=== PATIENT | female | born 1965 ===

== ENCOUNTER 2018-08-19 14:20 | Inpatient (IN) | payer MEDICAID ==
[2018-08-19] MEDS ORDERED: Piperacillin/Tazobact 3.375 GM in Sodium Chloride 0.9% 100 ML IV STA (15:30)
--- NOTE | 2018-08-19 15:52 | ED PDOC ---
Upper Extremity Pain/Injury Time Seen by Provider: 08/19/18 15:24 Chief Complaint (Nursing): Finger,Hand,&Wrist Chief Complaint (Provider): finger injury History Per: Patient History/Exam Limitations: no limitations Onset/Duration Of Symptoms: Days (x3) Current Symptoms Are (Timing): Still Present Additional Complaint(s): Bertha Wade, a 52 year old female with past medical history of Sclerderma and Reynauds disease, presents to the emergency department with finger pain onset 3 days s/p injuring her fingertip on a cabinet. Patient states she had a cut under her nail from the injury and now has worsening swelling, pain and redness to the right second digit. At baseline she has slightly contracted fingers and movement is worse in the right second digit. Redness and swelling is also worse in the right second digit.Patient has other lesions on fingers not causing the severe redness, swelling and pain. She denies fever or chills. Patient takes prilosec to prevent inflammation from Sclerderma. No further medical complaints PMD: None Past Medical History Reviewed: Historical Data, Nursing Documentation, Vital Signs Vital Signs: Last Vital Signs Temp 98.7 F 08/19/18 14:35 Pulse 68 08/19/18 14:35 Resp 18 08/19/18 14:35 BP 139/84 08/19/18 14:35 Pulse Ox 98 08/19/18 14:35 - Medical History Other PMH: Sclerderma and Reynauds disease - Surgical History Other surgeries: vascuar surgery to left wrist and hand, resectin of calcification to left thumb - Family History Family History: States: Unknown Family Hx - Social History Current smoker - smoking cessation education provided: Yes - Home Medications Home Medications: Ambulatory Orders Medication Instructions Recorded Omeprazole Magnesium [Prilosec Otc] 20 mg PO DAILY 08/19/18 - Allergies Allergies/Adverse Reactions: Allergies Allergy/AdvReac Type Severity Reaction Status Date / Time No Known Allergies Allergy Verified 08/19/18 14:35 Review of Systems ROS Statement: Except As Marked, All Systems Reviewed And Found Negative Constitutional: Negative for: Fever, Chills Musculoskeletal: Positive for: Other (swelling pain and redness to right second digit, at baseline has slightly contraced fingers, movement worse in right second digit, lesions on fingers not causing severe redness swelling or pain) Physical Exam - Reviewed Nursing Documentation Reviewed: Yes Vital Signs Reviewed: Yes - Physical Exam Appears: Positive for: Well, Non-toxic, In Acute Distress (mild painful distress) Head Exam: Positive for: ATRAUMATIC, NORMAL INSPECTION, NORMOCEPHALIC Skin: Positive for: Warm, Dry Eye Exam: Positive for: EOMI, PERRL ENT: Negative for: Pharyngeal Erythema, Tonsillar Exudate Neck: Positive for: Painless ROM, Supple Cardiovascular/Chest: Positive for: Regular Rate, Rhythm. Negative for: Murmur Respiratory: Positive for: Normal Breath Sounds. Negative for: Wheezing Gastrointestinal/Abdominal: Positive for: Soft. Negative for: Tenderness Back: Positive for: Normal Inspection. Negative for: Decreased ROM Extremity: Positive for: Capillary Refill (less than 2), Other (bilateral hands- mild contraction of all digits, skin is tight with areas of peeling at fingertips, right 2nd digit sausage like edema and erythema, held inflection, tenderness long flexor sheath and extension elicits severe pain, erythema more localized to fingertip just distal to nail no fluctuance, light touch intact,, 3 digit mil phalanx volar raised firm calcification, L hand 5 digit distal fingertip yellow healed abrasion ) Lymphatic: Negative for: Adenopathy Neurologic/Psych: Positive for: Alert. Negative for: Motor/Sensory Deficits - Laboratory Results Result Diagrams: 08/19/18 15:30 08/19/18 15:30 - ECG O2 Sat by Pulse Oximetry: 98 (RA) Pulse Ox Interpretation: Normal Medical Decision Making Medical Decision Making: Time: 15:24 Initial Impression: second right finger infection with possible flexor tenosynovitis Initial Plan: --EKG --CMP --CRP --Lactic acid --Urine dipstick --CBC w/ differential --Erythrocyte sedimentation rate --Partial thromboplastin time --Prothrombin time Time: 15:39 -discussed with Dr. Lopez hand consult, patient to be admitted for IV antibiotics and close observation of progressive infection with possible surgical intervention -consulted with Dr. Bruno surgical services coordinator who evaluated patient in ED Time: 15:42 -discussed with hospitalist - Scribe Attestation: Documented by Nicole Brown, acting as a scribe for Ameena Willard MD. Provider Scribe Attestation: All medical record entries made by the Scribe were at my direction and perso jason dictated by me. I have reviewed the chart and agree that the record accurately reflects my personal performance of the history, physical exam, medical decision making, and the department course for this patient. I have also personally directed, reviewed, and agree with the discharge instructions and disposition. Disposition - Clinical Impression Clinical Impression: Flexor tenosynovitis of finger - Disposition Disposition Time: 15:40 Condition: GUARDED Forms: HSystem (Samoan) - Pt Status Changed To: Hospital Disposition Of: Observation - POA Present On Arrival: None
[2018-08-19] MEDS ORDERED: Vancomycin 1 g Inj ONE (15:58)
[2018-08-19] MEDS ORDERED: Piperacillin/Tazobact 3.375 gm Inj IVPB ONE (15:58)
--- NOTE | 2018-08-19 16:03 | CP.PCM.CON ---
History of Present Illness - History of Present Illness History of Present Illness: Surgery: Dr. Lopez CC: Infected R index finger HPI: 52F w. pmh of scleroderma and reynauds presents with worsening pain / swelling to R index finger. Symptoms began 3 days ago, she attributes it to a small cut on the finger. Pt has been soaking finger in salt water, however there has been no improvement in symptoms. She states that she has numbness/parathesias in the finger. The pain is constant, worse with motion. She states that here has been no drainage of pus. She denies F/C. PMH: See above PSH: Hysterectomy, L hand surgery x 2 Meds: MAR reviewed NKDA Social: + tobacco, no ETOH/drugs Fhx: non-contributory Review of Systems - Review of Systems All systems: reviewed and no additional remarkable complaints except (HPI) Past Patient History - Past Social History Smoking Status: Never Smoked - INTEGUMENTARY Hx Dermatological Problems: Yes Other/Comment: Sclerderma. Reynauds. - PSYCHIATRIC Hx Substance Use: No Meds Allergies/Adverse Reactions: Allergies Allergy/AdvReac Type Severity Reaction Status Date / Time No Known Allergies Allergy Verified 08/19/18 14:35 - Medications Medications: Current Medications Vancomycin HCl 1 gm/ Sodium (Chloride) 250 mls @ 166.667 mls/hr IV STAT STA; Protocol Stop: 08/19/18 16:59 Piperacillin Sod/Tazobactam (Sod 3.375 gm/ Sodium Chloride) 100 mls @ 100 mls/hr IV STAT STA; Protocol Stop: 08/19/18 16:29 Physical Exam - Constitutional Appears: Non-toxic, No Acute Distress - Head Exam Head Exam: ATRAUMATIC, NORMOCEPHALIC - Eye Exam Eye Exam: EOMI - ENT Exam ENT Exam: Mucous Membranes Moist - Neck Exam Neck exam: Positive for: Full Rom - Respiratory Exam Respiratory Exam: NORMAL BREATHING PATTERN. absent: Accessory Muscle Use, Respiratory Distress - Cardiovascular Exam Cardiovascular Exam: RRR - GI/Abdominal Exam GI & Abdominal Exam: Soft. absent: Tenderness - Extremities Exam Additional comments: R index finger, swollen with fusiform shape, and overlying erythema, warm to touch, Flexion limited 2/2 swelling, able to extend passively with pain localized to DIPJ distally. Distal pulses palpable, sensation intact Results - Vital Signs Recent Vital Signs: Last Vital Signs Temp 98.7 F 08/19/18 14:35 Pulse 68 08/19/18 14:35 Resp 18 08/19/18 14:35 BP 139/84 08/19/18 14:35 Pulse Ox 98 08/19/18 15:57 Assessment & Plan - Assessment and Plan (Free Text) Assessment: 52F w. flexor tenosynovitis R index finger -Xray reviewed -zosyn/vanco -Tylenol/advil for pain -will follow closely, if no improvement, pt will need OR -NPO -d/w attending Zemaitis PGY4
[2018-08-19] MEDS ORDERED: Piperacillin/Tazobact 3.375 GM in Sodium Chloride 0.9% 100 ML IVPB STA (16:15)
[2018-08-19 16:19] LABS: BASO # 0.1 K/uL (0.0-0.2); BASO % 0.8 % (0.0-2.0); EOS # 0.1 K/uL (0.0-0.7); EOS % 0.9 % (0.0-4.0); HEMOGLOBIN 13.4 g/dL (12.0-16.0); LYMPH # 2.2 K/uL (1.0-4.3); LYMPH % 25.8 % (20.0-40.0); MEAN CELL VOLUME 88.1 fl (81.0-99.0); MEAN CORPUSCULAR HEMOGLOBIN 29.6 pg (27.0-31.0); MEAN CORPUSCULAR HGB CONC 33.5 g/dL (33.0-37.0); MEAN PLATELET VOLUME 9.2 fl (7.2-11.7); MONO # 0.6 K/uL (0.0-0.8); MONO % 6.6 % (0.0-10.0); NEUT # 5.7 K/uL (1.8-7.0); NEUT % 65.9 % (50.0-75.0); RBC 4.52 Mil/uL (3.80-5.20); RED CELL DISTRIBUTION WIDTH 14.9 % (11.5-14.5); WHITE BLOOD COUNT 8.7 K/uL (4.8-10.8)
[2018-08-19 16:28] LABS: ALB/GLOB RATIO 1.1 (1.0-2.1); ALBUMIN 4.1 g/dL (3.5-5.0); ALT/SGPT 28 U/L (9-52); AST/SGOT 24 U/L (14-36); BLOOD UREA NITROGEN 14 mg/dl (7-17); CALCIUM 9.5 mg/dL (8.4-10.2); GFR NON-AFRICAN AMERICAN > 60
--- NOTE | 2018-08-19 16:48 | RAD ---
Date of service: 08/19/2018 HISTORY: preop COMPARISON: No prior. TECHNIQUE: Chest PA and lateral FINDINGS: LUNGS: No active pulmonary disease. PLEURA: No significant pleural effusion identified. No pneumothorax apparent. CARDIOVASCULAR: Mild atherosclerotic calcification present Normal. OSSEOUS STRUCTURES: The mild multilevel degenerative spondylosis of the thoracic spine VISUALIZED UPPER ABDOMEN: Normal. OTHER FINDINGS: None. IMPRESSION: No active disease.
--- NOTE | 2018-08-19 16:49 | CP.PCM.HP ---
<AshleymunaArlene - Last Filed: 08/19/18 17:53> History of Present Illness - History of Present Illness History of Present Illness: Pt is a 52 yo F with a pmhx of scleroderma and raynauds here due to right index finger and left pinky finger pain. Pt states that 2 weeks ago she suffered a cut underneath her R nailbed due to persistant dry skin from her chronic condition, she tried to soak the R index finger in salt water for 30 mins at a time, however it started to get warm, swollen and tender, she has trouble bending the finger today. Pt didnt take any pain medication at home, states she used to take Nifedipine for her condition no longer does. Pt had an appt with [facility] on 09/05 for evaluation of the Left pinky pain. PMH: Scleroderma dx 18yrs ago, Raynauds Meds: Prilosec NKDA FH: Father- 6 NE's (1st at age 40)-no hx of heart dz, Aunt-DM, Mom-Asthma Social Hx: Smokes 2-3 cig/day for the last 2-3 months, Social drinker, Denies drug use Surg Hx: Hysterectomy 2002, 2 L hand surgeries Present on Admission - Present on Admission Any Indicators Present on Admission: No History of DVT/PE: No History of Uncontrolled Diabetes: No Urinary Catheter: No Decubitus Ulcer Present: No Review of Systems - EENT Eyes: Requires Corrective Lenses - Musculoskeletal Musculoskeletal: Joint Swelling, Limited Range of Motion, Other Past Patient History - Past Medical History & Family History Past Medical History?: Yes - Past Social History Smoking Status: Smokes 2-3 cig/day for last 2-3 months Alcohol: Social Drugs: Denies - INTEGUMENTARY Hx Dermatological Problems: Yes Other/Comment: Sclerderma. Sammieauds. - PSYCHIATRIC Hx Substance Use: No - SURGICAL HISTORY Hx Hysterectomy: Yes (2002) Meds Allergies/Adverse Reactions: Allergies Allergy/AdvReac Type Severity Reaction Status Date / Time No Known Allergies Allergy Verified 08/19/18 14:35 Physical Exam - Constitutional Appears: Non-toxic, No Acute Distress - Head Exam Head Exam: ATRAUMATIC, NORMAL INSPECTION, NORMOCEPHALIC - Eye Exam Eye Exam: EOMI, Normal appearance - ENT Exam ENT Exam: Mucous Membranes Moist - Respiratory Exam Respiratory Exam: Clear to Auscultation Bilateral, NORMAL BREATHING PATTERN - Cardiovascular Exam Cardiovascular Exam: RRR, +S1, +S2 - GI/Abdominal Exam GI & Abdominal Exam: Normal Bowel Sounds, Soft - Extremities Exam Extremities exam: Positive for: joint swelling, tenderness (R index finger, swollen with fusiform shape, and overlying erythema, warm to touch, Flexion limited 2/2 swelling, able to extend passively with pain localized to DIPJ di stally. Distal pulses palpable, sensation intact) - Neurological Exam Neurological exam: Alert, Oriented x3 - Skin Skin Exam: Dry (Dry skin UE, taut skin B/L LE, slight sclerodactyly noted in fingers ) Results - Vital Signs Recent Vital Signs: Last Vital Signs Temp 98.7 F 08/19/18 14:35 Pulse 68 08/19/18 14:35 Resp 18 08/19/18 14:35 BP 139/84 08/19/18 14:35 Pulse Ox 98 08/19/18 16:02 - Labs Result Diagrams: 08/19/18 15:30 08/19/18 15:30 Labs: Laboratory Results - last 24 hr 08/19/18 08/19/18 08/19/18 15:30 15:30 15:30 WBC 8.7 RBC 4.52 Hgb 13.4 Hct 39.8 MCV 88.1 MCH 29.6 MCHC 33.5 RDW 14.9 H Plt Count 218 MPV 9.2 Neut % (Auto) 65.9 Lymph % (Auto) 25.8 [place] % (Auto) 6.6 Eos % (Auto) 0.9 Baso % (Auto) 0.8 Neut # (Auto) 5.7 Lymph # (Auto) 2.2 [place] # (Auto) 0.6 Eos # (Auto) 0.1 Baso # (Auto) 0.1 PT 11.0 INR 1.0 APTT 30.0 Sodium 138 Potassium 4.4 Chloride 107 Carbon Dioxide 28 Anion Gap 7 L BUN 14 Creatinine 0.6 L Est GFR ( Amer) > 60 Est GFR (Non-Af Amer) > 60 Random Glucose 94 Lactic Acid Calcium 9.5 Total Bilirubin 0.4 AST 24 ALT 28 Alkaline Phosphatase 77 Total Protein 7.9 Albumin 4.1 Globulin 3.8 Albumin/Globulin Ratio 1.1 08/19/18 16:04 WBC RBC Hgb Hct MCV MCH MCHC RDW Plt Count MPV Neut % (Auto) Lymph % (Auto) [place] % (Auto) Eos % (Auto) Baso % (Auto) Neut # (Auto) Lymph # (Auto) [place] # (Auto) Eos # (Auto) Baso # (Auto) PT INR APTT Sodium Potassium Chloride Carbon Dioxide Anion Gap BUN Creatinine Est GFR ( Amer) Est GFR (Non-Af Amer) Random Glucose Lactic Acid < 0.5 L Calcium Total Bilirubin AST ALT Alkaline Phosphatase Total Protein Albumin Globulin Albumin/Globulin Ratio Assessment & Plan - Assessment and Plan (Free Text) Assessment: Pt is a 52 yo F with a pmhx of scleroderma and Raynauds came to ED with finger pain admitted for flexor tenosynovitis of the R index finger, L pinky pain. 1. Flexor Tenosynovitis of R index finger -Acute -Xray hand-pending final report -Hand surgery consulted- Dr. Dela Cruz- recommendations appreciated -vice president of customer service evaluated pt -Continue IV Abx zosyn/vanco -In ED- CXR-neg, Lactic acid <0.5, CMP, EKG, PT, PTT, Urine Dip, CBC -Tylenol/advil for pain, IVF's -Will follow closely, if no improvement, pt will need OR -NPO -F/u ESR, CRP 2. Scleroderma, Raynauds -Chronic -Protonix 40mg -Takes prilosec at home 3. DVT PPx -Lovenox 40mg SC 4. Code status -Full code - Date & Time Date: 08/19/18 Time: 17:12 <Tavo Byrd D - Last Filed: 08/19/18 18:40> Results - Vital Signs Recent Vital Signs: Last Vital Signs Temp 97.9 F 08/19/18 17:25 Pulse 60 08/19/18 17:25 Resp 18 08/19/18 17:25 BP 140/75 08/19/18 17:25 Pulse Ox 98 08/19/18 17:31 - Labs Result Diagrams: 08/19/18 15:30 08/19/18 15:30 Labs: Laboratory Results - last 24 hr 08/19/18 08/19/18 08/19/18 15:30 15:30 15:30 WBC 8.7 RBC 4.52 Hgb 13.4 Hct 39.8 MCV 88.1 MCH 29.6 MCHC 33.5 RDW 14.9 H Plt Count 218 MPV 9.2 Neut % (Auto) 65.9 Lymph % (Auto) 25.8 [place] % (Auto) 6.6 Eos % (Auto) 0.9 Baso % (Auto) 0.8 Neut # (Auto) 5.7 Lymph # (Auto) 2.2 [place] # (Auto) 0.6 Eos # (Auto) 0.1 Baso # (Auto) 0.1 ESR 26 PT 11.0 INR 1.0 APTT 30.0 Sodium 138 Potassium 4.4 Chloride 107 Carbon Dioxide 28 Anion Gap 7 L BUN 14 Creatinine 0.6 L Est GFR ( Amer) > 60 Est GFR (Non-Af Amer) > 60 Random Glucose 94 Lactic Acid Calcium 9.5 Total Bilirubin 0.4 AST 24 ALT 28 Alkaline Phosphatase 77 Total Protein 7.9 Albumin 4.1 Globulin 3.8 Albumin/Globulin Ratio 1.1 08/19/18 16:04 WBC RBC Hgb Hct MCV MCH MCHC RDW Plt Count MPV Neut % (Auto) Lymph % (Auto) [place] % (Auto) Eos % (Auto) Baso % (Auto) Neut # (Auto) Lymph # (Auto) [place] # (Auto) Eos # (Auto) Baso # (Auto) ESR PT INR APTT Sodium Potassium Chloride Carbon Dioxide Anion Gap BUN Creatinine Est GFR ( Amer) Est GFR (Non-Af Amer) Random Glucose Lactic Acid < 0.5 L Calcium Total Bilirubin AST ALT Alkaline Phosphatase Total Protein Albumin Globulin Albumin/Globulin Ratio Attending/Attestation - Attestation I have personally seen and examined this patient.: Yes I have fully participated in the care of the patient.: Yes I have reviewed all pertinent clinical information: Yes Notes (Text): 08/19/18 18:40 Patient seen and examined with resident. Case discussed and agreed with assessment and plan of management.
[2018-08-19] MEDS: Sodium Chloride 0.9% 1,000 ML IV SCH (18:05)
--- NOTE | 2018-08-19 18:05 | RAD ---
Date of service: 08/19/2018 PROCEDURE: Right Index finger radiographs. HISTORY: Finger infection COMPARISON: None. TECHNIQUE: AP radiograph of the right hand, as well as spot oblique and lateral images of index finger were obtained. FINDINGS: RIGHT INDEX FINGER: There appears to be localized destructive--osteomyelitis changes of the distal tuft distal phalanx 2nd digit.. In addition, there are a cluster of dense calcifications within the cyst dorsal soft tissues at the level of the proximal aspect middle phalanx 3rd digit and what appears represent a small a dense calcification within the volar soft tissues at the level of the DIP joint 3rd digit as well JOINTS: Normal. SOFT TISSUES: Normal. OTHER FINDINGS: None. IMPRESSION: Apparent destructive changes/osteomyelitis distal tuft distal phalanx 2nd digit. Note that these findings were discussed with Dr. Willard at approximately 6:01 p.m. with written down and read back verification.. See above discussion for additional details and findings
[2018-08-19] MEDS: Pantoprazole 40 mg EC Tab PO SCH (18:52)
[2018-08-19] MEDS ORDERED: Influenza Vaccine (5 YR UP)/PF 60 MCG/0.5 ML SYR IM ONE (21:00)
[2018-08-19] MEDS: Piperacillin/Tazobact 3.375 GM in Sodium Chloride 0.9% 100 ML IVPB SCH (22:02)
--- NOTE | 2018-08-19 22:45 | CARD ---
APPROVED REPORT Date of service: 08/19/2018 EKG Measurement Heart [id number] <Conclusion> Sinus bradycardia Otherwise normal ECG
[2018-08-20] MEDS: Sodium Chloride 0.9% 1,000 ML IV SCH (03:13)
[2018-08-20] MEDS: Piperacillin/Tazobact 3.375 GM in Sodium Chloride 0.9% 100 ML IVPB SCH ×2 (05:02→11:15)
[2018-08-20 06:28] LABS: BASO % 0.7 % (0.0-2.0); EOS # 0.1 K/uL (0.0-0.7); EOS % 1.8 % (0.0-4.0); HEMOGLOBIN 12.3 g/dL (12.0-16.0); LYMPH # 1.9 K/uL (1.0-4.3); LYMPH % 28.6 % (20.0-40.0); MEAN CELL VOLUME 87.9 fl (81.0-99.0); MEAN CORPUSCULAR HEMOGLOBIN 29.4 pg (27.0-31.0); MEAN CORPUSCULAR HGB CONC 33.4 g/dL (33.0-37.0); MEAN PLATELET VOLUME 9.4 fl (7.2-11.7); MONO # 0.6 K/uL (0.0-0.8); MONO % 8.4 % (0.0-10.0); NEUT # 4.1 K/uL (1.8-7.0); NEUT % 60.5 % (50.0-75.0); NRBC % 0.1 % (0.0-0.0); RBC 4.18 Mil/uL (3.80-5.20); RED CELL DISTRIBUTION WIDTH 14.6 % (11.5-14.5); WHITE BLOOD COUNT 6.8 K/uL (4.8-10.8)
[2018-08-20 06:40] LABS: BLOOD UREA NITROGEN 11 mg/dl (7-17); CALCIUM 8.5 mg/dL (8.4-10.2); GFR NON-AFRICAN AMERICAN > 60
[2018-08-20 08:11] VITALS: BP 114/70; PULSE 88; RESP 20; TEMP 97.8; O2SAT 96
[2018-08-20] MEDS ORDERED: Enoxaparin 40 mg Syringe SC SCH (09:00)
[2018-08-20] MEDS: Pantoprazole 40 mg EC Tab PO SCH (10:10)
--- NOTE | 2018-08-20 10:18 | CP.PCM.PN ---
Addendum entered and electronically signed by Chucky Brower MD 08/20/18 13:00: Patient was seen and examined . All chart and clinical data reviewed . Case discussed with Dr. Lopez. patient clinically improved Will d/c home on Po bactrim Original Note: Subjective - Date & Time of Evaluation Date of Evaluation: 08/20/18 Time of Evaluation: 09:00 - Subjective Subjective: No Acute overnight events, was told to elevate her hand, pain has decreased in the R index finger. Denies fevers, chills, chest pain, SOB, nausea, vomiting, diarrhea or constipation. Objective - Vital Signs/Intake and Output Vital Signs (last 24 hours): Temp Pulse Resp BP Pulse Ox 97.8 F 88 20 114/70 96 08/20/18 08:11 08/20/18 08:11 08/20/18 08:11 08/20/18 08:11 08/20/18 08:11 - Medications Medications: Current Medications Acetaminophen (Tylenol 325mg Tab) 650 mg PO Q6 PRN PRN Reason: Pain, Mild (1-3) Enoxaparin Sodium (Lovenox) 40 mg SC DAILY JULITO; Protocol Sodium Chloride (Sodium Chloride 0.9%) 1,000 mls @ 100 mls/hr IV .Q10H JULITO Stop: 08/20/18 16:10 Last Admin: 08/20/18 03:13 Dose: Not Given Vancomycin HCl 1 gm/ Sodium (Chloride) 250 mls @ 166.667 mls/hr IVPB Q12H JULITO; Protocol Last Admin: 08/20/18 03:12 Dose: 166.667 mls/hr Piperacillin Sod/Tazobactam (Sod 3.375 gm/ Sodium Chloride) 100 mls @ 100 mls/hr IVPB Q6 JULITO; Protocol Last Admin: 08/20/18 05:02 Dose: 100 mls/hr Ibuprofen (Motrin Tab) 400 mg PO Q6 PRN PRN Reason: Pain, moderate (4-7) Last Admin: 08/19/18 22:48 Dose: 400 mg Pantoprazole Sodium (Protonix Ec Tab) 40 mg PO DAILY JULITO Last Admin: 08/20/18 10:10 Dose: Not Given - Labs Labs: 08/20/18 05:45 08/20/18 05:45 PT 11.0 Seconds (9.8-13.1) 08/19/18 15:30 INR 1.0 08/19/18 15:30 APTT 30.0 Seconds (25.6-37.1) 08/19/18 15:30 - Constitutional Appears: Non-toxic, No Acute Distress - Head Exam Head Exam: ATRAUMATIC, NORMAL INSPECTION, NORMOCEPHALIC - Eye Exam Eye Exam: EOMI, Normal appearance - ENT Exam ENT Exam: Mucous Membranes Moist - Respiratory Exam Respiratory Exam: Clear to Ausculation Bilateral, NORMAL BREATHING PATTERN - Cardiovascular Exam Cardiovascular Exam: RRR, +S1, +S2 - GI/Abdominal Exam GI & Abdominal Exam: Soft, Normal Bowel Sounds - Extremities Exam Additional comments: R index finger still swollen with fusiform shape, improving overlying erythema, warm to touch only at tip of finger, Flexion limited 2/2 swelling, able to extend passively with pain localized to DIPJ distally. Distal pulses palpable, sensation intact - Neurological Exam Neurological Exam: Alert, Awake, Oriented x3 - Skin Skin Exam: Dry (Dry skin UE, taut skin B/L LE, slight sclerodactyly noted in fingers), Erythema (slightly improved R index finger) Assessment and Plan - Assessment and Plan (Free Text) Assessment: Pt is a 52 yo F with a pmhx of scleroderma and Raynauds came to ED with finger pain admitted for flexor tenosynovitis of the R index finger, L pinky pain. 1. Flexor Tenosynovitis of R index finger -Acute -Xray hand-Destructive changes/osteomylitis of distal phalynx 2nd digit, 3rd phalynx-dense calcification within tissue -Hand surgery consulted- Dr. Dela Cruz- recommendations appreciated- elevate hand, if no improvement by tomorrow will need OR -NPO -Continue IV Abx zosyn/vanco -Tylenol/advil for pain, IVF's -CXR-neg, Lactic acid <0.5 -ESR-Normal -CRP-pending 2. Scleroderma, Raynauds -Chronic -Protonix 40mg 3. DVT PPx -Lovenox 40mg SC 4. Code status -Full code
--- NOTE | 2018-08-20 10:29 | CP.PCM.PN ---
Subjective - Date & Time of Evaluation Date of Evaluation: 08/20/18 Time of Evaluation: 07:00 - Subjective Subjective: HAND SURGERY PROGRESS NOTE FOR DR. RICHARDSON Patient seen and examined at bedside. Reports pain improved with Motrin. Objective - Vital Signs/Intake and Output Vital Signs (last 24 hours): Temp Pulse Resp BP Pulse Ox 97.8 F 88 20 114/70 96 08/20/18 08:11 08/20/18 08:11 08/20/18 08:11 08/20/18 08:11 08/20/18 08:11 - Medications Medications: Current Medications Acetaminophen (Tylenol 325mg Tab) 650 mg PO Q6 PRN PRN Reason: Pain, Mild (1-3) Enoxaparin Sodium (Lovenox) 40 mg SC DAILY JULITO; Protocol Sodium Chloride (Sodium Chloride 0.9%) 1,000 mls @ 100 mls/hr IV .Q10H JULITO Stop: 08/20/18 16:10 Last Admin: 08/20/18 03:13 Dose: Not Given Vancomycin HCl 1 gm/ Sodium (Chloride) 250 mls @ 166.667 mls/hr IVPB Q12H JULITO; Protocol Last Admin: 08/20/18 03:12 Dose: 166.667 mls/hr Piperacillin Sod/Tazobactam (Sod 3.375 gm/ Sodium Chloride) 100 mls @ 100 mls/hr IVPB Q6 JULITO; Protocol Last Admin: 08/20/18 05:02 Dose: 100 mls/hr Ibuprofen (Motrin Tab) 400 mg PO Q6 PRN PRN Reason: Pain, moderate (4-7) Last Admin: 08/19/18 22:48 Dose: 400 mg Pantoprazole Sodium (Protonix Ec Tab) 40 mg PO DAILY JULITO Last Admin: 08/20/18 10:10 Dose: Not Given - Labs Labs: 08/20/18 05:45 08/20/18 05:45 PT 11.0 Seconds (9.8-13.1) 08/19/18 15:30 INR 1.0 08/19/18 15:30 APTT 30.0 Seconds (25.6-37.1) 08/19/18 15:30 - Constitutional Appears: Non-toxic, No Acute Distress - Head Exam Head Exam: ATRAUMATIC, NORMAL INSPECTION - Eye Exam Eye Exam: EOMI, Normal appearance - Respiratory Exam Respiratory Exam: NORMAL BREATHING PATTERN. absent: Respiratory Distress - Cardiovascular Exam Cardiovascular Exam: +S1, +S2 - Extremities Exam Additional comments: R index finger: edematous, erythematous, pain with passive extension - Neurological Exam Neurological Exam: Alert, Awake, Oriented x3 - Psychiatric Exam Psychiatric exam: Normal Affect, Normal Mood Assessment and Plan - Assessment and Plan (Free Text) Assessment: 52F with flexor tenosynovitis of R index finger, slightly improved - IV antibiotics: zosyn/vanco - Tylenol/advil for pain - Elevate hand on pillows - If no improvement by tomorrow AM, will need OR - Discussed plan with Dr. John Galvan PGY-4
--- NOTE | 2018-08-20 12:57 | CP.PCM.DIS ---
Provider - Provider Date of Admission: 08/19/18 16:01 Attending physician: Tavo Byrd MD Primary care physician: None Consults: Hand surgery Time Spent in preparation of Discharge (in minutes): 15 Hospital Course - Lab Results Lab Results: Most Recent Lab Values WBC 6.8 K/uL (4.8-10.8) 08/20/18 05:45 RBC 4.18 Mil/uL (3.80-5.20) 08/20/18 05:45 Hgb 12.3 g/dL (12.0-16.0) 08/20/18 05:45 Hct 36.8 % (34.0-47.0) 08/20/18 05:45 MCV 87.9 fl (81.0-99.0) 08/20/18 05:45 MCH 29.4 pg (27.0-31.0) 08/20/18 05:45 MCHC 33.4 g/dL (33.0-37.0) 08/20/18 05:45 RDW 14.6 % (11.5-14.5) H 08/20/18 05:45 Plt Count 187 K/uL (130-400) 08/20/18 05:45 MPV 9.4 fl (7.2-11.7) 08/20/18 05:45 Neut % (Auto) 60.5 % (50.0-75.0) 08/20/18 05:45 Lymph % (Auto) 28.6 % (20.0-40.0) 08/20/18 05:45 [place] % (Auto) 8.4 % (0.0-10.0) 08/20/18 05:45 Eos % (Auto) 1.8 % (0.0-4.0) 08/20/18 05:45 Baso % (Auto) 0.7 % (0.0-2.0) 08/20/18 05:45 Neut # (Auto) 4.1 K/uL (1.8-7.0) 08/20/18 05:45 Lymph # (Auto) 1.9 K/uL (1.0-4.3) 08/20/18 05:45 [place] # (Auto) 0.6 K/uL (0.0-0.8) 08/20/18 05:45 Eos # (Auto) 0.1 K/uL (0.0-0.7) 08/20/18 05:45 Baso # (Auto) 0.0 K/uL (0.0-0.2) 08/20/18 05:45 ESR 21 mm/hr (0-30) 08/20/18 08:47 PT 11.0 Seconds (9.8-13.1) 08/19/18 15:30 INR 1.0 08/19/18 15:30 APTT 30.0 Seconds (25.6-37.1) 08/19/18 15:30 Sodium 140 mmol/l (132-148) 08/20/18 05:45 Potassium 3.7 MMOL/L (3.6-5.0) 08/20/18 05:45 Chloride 111 mmol/L (98-107) H 08/20/18 05:45 Carbon Dioxide 26 mmol/L (22-30) 08/20/18 05:45 Anion Gap 7 (10-20) L 08/20/18 05:45 BUN 11 mg/dl (7-17) 08/20/18 05:45 Creatinine 0.6 mg/dl (0.7-1.2) L 08/20/18 05:45 Est GFR ( Amer) > 60 08/20/18 05:45 Est GFR (Non-Af Amer) > 60 08/20/18 05:45 POC Glucose (mg/dL) 86 mg/dL (65-110) 08/19/18 16:56 Random Glucose 90 mg/dL (65-105) 08/20/18 05:45 Lactic Acid < 0.5 MMOL/L (0.7-2.1) L 08/19/18 16:04 Calcium 8.5 mg/dL (8.4-10.2) 08/20/18 05:45 Total Bilirubin 0.4 mg/dl (0.2-1.3) 08/19/18 15:30 AST 24 U/L (14-36) 08/19/18 15:30 ALT 28 U/L (9-52) 08/19/18 15:30 Alkaline Phosphatase 77 U/L (38-126) 08/19/18 15:30 C-Reactive Protein 9.20 mg/L (0.0-9.9) 08/19/18 15:30 Total Protein 7.9 G/DL (6.3-8.2) 08/19/18 15:30 Albumin 4.1 g/dL (3.5-5.0) 08/19/18 15:30 Globulin 3.8 gm/dL (2.2-3.9) 08/19/18 15:30 Albumin/Globulin Ratio 1.1 (1.0-2.1) 08/19/18 15:30 - Hospital Course Hospital Course: 52 yo F with PMH of scleroderma and Raynauds phenomena presented tpo Er with 3 day history of right index finger pain , swelling and erythema.patient steven placved under observation for tenosynovitis and started on Iv Vanco and Zosyn and hand surgeon was consulted . patient remained afebrile with normal WBC count and normal ESR Clinically erythema and swelling of right index finger significantly improved , able to move, sensation intact , capillary refill intact Discussed with Dr. Lopez. No surgical intervention is needed. Patient can be discharged home on Po antibiotics. Counselled on hand care. Avoid nail bitting 1. Flexor Tenosynovitis of R index finger 2. 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 absent: Rales, Rhonchi, Wheezes - Cardiovascular Exam Cardiovascular Exam: REGULAR RHYTHM, RRR, +S1, +S2. absent: JVD - GI/Abdominal Exam GI & Abdominal Exam: Normal Bowel Sounds, Soft. absent: Distended, Guarding, Rebound, Tenderness - Rectal Exam Rectal Exam: Deferred - Extremities Exam Extremities exam: normal inspection Additional comments: sausage shape fingers second digit of right hand slightly swollen , no erythema, no fluctuation, capillary refill intact sensation intact - Back Exam Back exam: NORMAL INSPECTION - Neurological Exam Neurological exam: Alert, CN II-XII Intact, Oriented x3 - Psychiatric Exam Psychiatric exam: Normal Affect - Skin Skin Exam: Dry, Warm Discharge Plan - Discharge Medications Prescriptions: Sulfamethoxazole/Trimethoprim [Bactrim DS 800 mg-160 mg] 1 tab PO BID #14 tab - Follow Up Plan Condition: STABLE Disposition: HOME/ ROUTINE Patient education suggested?: Yes Instructions: Tenosynovitis (DC) Referrals: Colten Lopez MD [Staff Provider] - [facility] [Outside]
== END 2018-08-20 14:05 | disposition home or self-care (01) | DRG 248 ==
LOC: H.ER 14:20 → H.ERHOLD 16:01 → H.MEDSURG1 18:20
DX: M65.9 Synovitis and tenosynovitis, unspecified (principal); M34.9 Systemic sclerosis, unspecified; F17.210 Nicotine dependence, cigarettes, uncomplicated; I73.00 Raynaud's syndrome without gangrene; Z23 Encounter for immunization

== ENCOUNTER 2018-10-21 13:38 | Emergency (ER) | payer MEDICAID ==
[2018-10-21 13:54] VITALS: O2SAT 98
[2018-10-21] MEDS ORDERED: Naproxen 500 MG TAB PO STA (14:08)
--- NOTE | 2018-10-21 14:24 | ED PDOC ---
Lower Extremity Pain/Injury Time Seen by Provider: 10/21/18 13:58 Chief Complaint (Nursing): Lower Extremity Problem/Injury Chief Complaint (Provider): Left Toe Injury History Per: Patient History/Exam Limitations: no limitations Onset/Duration Of Symptoms: Days (x3 weeks) Current Symptoms Are (Timing): Still Present Additional Complaint(s): 53 year old female presents to the ED for evaluation of a left 4th toe injury. Patient reports that three weeks ago she started wearing new shoes and thought they were the culprit of her symptoms, however then she started noticing discoloration to the toe initially appearing as bruising. Now, she notes it is red and extremely painful, and the redness is spreading to her foot. Denies taking meds animal keeper head, falls, trauma, fever, and prior foot injury / surgery. PMD: none provided Past Medical History Reviewed: Historical Data, Nursing Documentation, Vital Signs Vital Signs: Last Vital Signs Temp 98.6 F 10/21/18 13:53 Pulse 80 10/21/18 13:53 Resp 20 10/21/18 13:53 BP 160/77 H 10/21/18 13:53 Pulse Ox 98 10/21/18 13:53 - Medical History Other PMH: Raynaud's disease; Scleroderma - Surgical History Other surgeries: hysterectomy - Family History Family History: States: Unknown Family Hx - Social History Current smoker - smoking cessation education provided: No Alcohol: None Drugs: Denies - Home Medications Home Medications: Ambulatory Orders Medication Instructions Recorded Omeprazole Magnesium [Prilosec Otc] 20 mg PO DAILY 08/19/18 Sulfamethoxazole/Trimethoprim 1 tab PO BID #14 tab 08/20/18 [Bactrim DS 800 mg-160 mg] Acetaminophen [Acetaminophen 8 650 mg PO Q8 PRN #21 tablet.er 10/21/18 Hour] Cephalexin [Keflex] 500 mg PO Q8 #21 capsule 10/21/18 Meloxicam [Mobic] 15 mg PO DAILY PRN #10 tab 10/21/18 - Allergies Allergies/Adverse Reactions: Allergies Allergy/AdvReac Type Severity Reaction Status Date / Time No Known Allergies Allergy Verified 08/19/18 14:35 Review of Systems ROS Statement: Except As Marked, All Systems Reviewed And Found Negative Constitutional: Negative for: Fever, Other (fall / trauma) Musculoskeletal: Positive for: Other (left foot 4th toe: redness, pain) Physical Exam - Reviewed Nursing Documentation Reviewed: Yes Vital Signs Reviewed: Yes - Physical Exam Comments: GENERAL APPEARANCE: Patient is awake, alert, oriented x 3, in no acute distress. Resting comfortably. SKIN: Warm, dry; (-) cyanosis. NECK: Supple, FROM RESPIRATORY: lungs CTA bilaterally (-) rales (-) rhonchi (-) wheezing LEFT LOWER EXTREMITY: Fourth toe: (+) diffuse erythema extending to base of proximal phalanx, (+) skin break just below nail that is scabbed over, (+) warmth, (+) tenderness; (+) distal fourth metatarsal tenderness. (-) calf tenderness. Remainder of foot and LLE: nontender, full ROM. Sensation and capillary refill intact. (+) distal pulse. CARDIOVASCULAR: RRR NEUROLOGIC: (+) distal sensation. - Laboratory Results Result Diagrams: 10/21/18 15:33 10/21/18 15:33 - ECG O2 Sat by Pulse Oximetry: 98 (RA) Pulse Ox Interpretation: Normal Medical Decision Making Medical Decision Making: Initial Impression: cellulitis of toe Time: 1405 Initial Plan: --Left foot XR --Naproxen 500mg PO --Consult placed to podiatry 1508 Spoke to podiatry resident, Norm, who recommends labs and is agreeable to evaluate patient in ED. 1615 Podiatry at bedside. Labs reviewed. CBC with no leukocytosis. BMP unremarkable. Foot XR: (-) fracture (-) evidence of osteomyelitis as read by Juanita BEAL 1625 Podiatry recommends treatment with Keflex PO. Keflex PO ordered. See consult note. Patient placed in surgical shoe by podiatry. 1635 Repeat BP: 158/84 On re-evaluation, patient reports improvement of symptoms. On exam, patient remains AAOx3, in no acute distress. Vitals stable. Lab/Diagnostic results d/w the patient in great detail. Diagnosis of cellulitis of toe d/w the patient. Based on history, exam and diagnostic results, plan will be for outpatient follow up with podiatry clinic. Patient instructed to follow-up with pmd / referral provided / the clinic in 1- 2 days without fail. Advised to take medication as prescribed. Return to the emergency room at any time for any new or worsening symptoms. Patient states she fully agrees with and understands discharge instructions. States that she agrees with the plan and disposition. Verbalized and repeated discharge instructions and plan. I have given the patient opportunity to ask any additional questions. Scribe Attestation: Documented by Carlota Martinez, acting as a scribe for Roshni Grant PA-C. Provider Scribe Attestation: All medical record entries made by the Scribe were at my direction and personally dictated by me. I have reviewed the chart and agree that the record accurately reflects my personal performance of the history, physical exam, medical decision making, and the department course for this patient. I have also personally directed, reviewed, and agree with the discharge instructions and disposition. Disposition - Clinical Impression Clinical Impression: Cellulitis of fourth toe of left foot - Patient ED Disposition Is Patient to be Admitted: No Counseled Patient/Family Regarding: Studies Performed, Diagnosis, Need For Followup, Rx Given - Disposition Referrals: [facility] [Outside] Podiatry Clinic [Outside] Disposition: Routine/Home Disposition Time: 16:35 Condition: STABLE Additional Instructions: The emergency medical care you received today was directed at your acute symptoms. If you were prescribed any medication, please fill it and take as directed. It may take several days for your symptoms to resolve. Return to the Emergency Department if your symptoms worsen, do not improve, or if you have any other problems. Please contact your doctor in 2 days for re-evaluation and follow up / or call one of the physicians/clinics you have been referred to that are listed on the Patient Visit Information form that is included in your discharge packet. Bring any paperwork you were given at discharge with you along with any medications you are taking to your follow up visit. Our treatment cannot replace ongoing medical care by a primary care provider (PCP) outside of the emergency department. Prescriptions: Acetaminophen [Acetaminophen 8 Hour] 650 mg PO Q8 PRN #21 tablet.er PRN Reason: Pain, Moderate (4-7) Cephalexin [Keflex] 500 mg PO Q8 #21 capsule Meloxicam [Mobic] 15 mg PO DAILY PRN #10 tab PRN Reason: Pain, Moderate (4-7) Instructions: Cellulitis and Erysipelas (Skin Infections) Forms: [employer] (Ecuadorean) Print Language: LUX[place]BOURGISH - POA Present On Arrival: None Results - Diagnostic Imaging Results Radiology Results Foot X-Ray 10/21/18 14:08 IMPRESSION: Unremarkable radiographs of the left foot. - Lab Results Lab Results: 10/21/18 10/21/18 15:33 15:33 WBC 10.1 D RBC 4.80 Hgb 13.8 Hct 42.5 MCV 88.6 MCH 28.7 MCHC 32.4 L RDW 15.6 H Plt Count 281 MPV 8.3 Neut % (Auto) 70.8 Lymph % (Auto) 19.9 L [place] % (Auto) 7.7 Eos % (Auto) 0.5 Baso % (Auto) 1.1 Neut # (Auto) 7.2 H Lymph # (Auto) 2.0 [place] # (Auto) 0.8 Eos # (Auto) 0.1 Baso # (Auto) 0.1 ESR 27 Sodium 138 Potassium 4.5 Chloride 103 Carbon Dioxide 26 Anion Gap 14 BUN 11 Creatinine 0.7 Est GFR ( Amer) > 60 Est GFR (Non-Af Amer) > 60 Random Glucose 95 Calcium 9.1
[2018-10-21] MEDS ORDERED: Naproxen 500 MG TAB PO ONE (14:52)
[2018-10-21 15:42] LABS: BASO # 0.1 K/uL (0.0-0.2); BASO % 1.1 % (0.0-2.0); EOS # 0.1 K/uL (0.0-0.7); EOS % 0.5 % (0.0-4.0); HEMOGLOBIN 13.8 g/dL (12.0-16.0); LYMPH % 19.9 % (20.0-40.0); MEAN CELL VOLUME 88.6 fl (81.0-99.0); MEAN CORPUSCULAR HEMOGLOBIN 28.7 pg (27.0-31.0); MEAN CORPUSCULAR HGB CONC 32.4 g/dL (33.0-37.0); MEAN PLATELET VOLUME 8.3 fl (7.2-11.7); MONO # 0.8 K/uL (0.0-0.8); MONO % 7.7 % (0.0-10.0); NEUT # 7.2 K/uL (1.8-7.0); NEUT % 70.8 % (50.0-75.0); NRBC % 0.2 % (0.0-0.0); RBC 4.8 Mil/uL (3.80-5.20); RED CELL DISTRIBUTION WIDTH 15.6 % (11.5-14.5); WHITE BLOOD COUNT 10.1 K/uL (4.8-10.8)
[2018-10-21 16:04] LABS: BLOOD UREA NITROGEN 11 mg/dl (7-17); CALCIUM 9.1 mg/dL (8.4-10.2); GFR NON-AFRICAN AMERICAN > 60
[2018-10-21 16:56] VITALS: BP 158/84; PULSE 68; RESP 18; TEMP 98.2
--- NOTE | 2018-10-21 19:14 | RAD ---
Date of service: 10/21/2018 PROCEDURE: Left Foot Radiographs. HISTORY: Cellulitis of 4th toe COMPARISON: None. FINDINGS: BONES: No evidence of acute displaced fracture nor dislocation. No definitive radiographic evidence of cortical destructive changes. Small posterior and tiny plantar calcaneal enthesophytes JOINTS: Normal. SOFT TISSUES: No significant swelling or subcutaneous emphysema identified at this time OTHER FINDINGS: None. IMPRESSION: Unremarkable radiographs of the left foot.
--- NOTE | 2018-10-21 22:28 | CP.PCM.CON ---
History of Present Illness - History of Present Illness History of Present Illness: Podiatry consult note for Dr. Simon 53F with pmhx of scleroderma and raynaud's seen and evaluated for left fourth digit pain and redness. States that for the past few months she has been experiencing the same symptoms and tried to alleviate on her own with ice and elevation as well as change in shoegear but nothing helped. States when the toe first started becoming painful she noticed some bleeding and felt as though her toe was rubbing against the front of her shoe. States she changed to a bigger shoe but not necessarily wider. States that she has taken some tylenol which helped a little with the pain. Denies N/V/F/C/SOB/CP today and has no other acute complaints. PMHx: see above PSHx: Hysterectomy and hand surgery All: NKDA Past Patient History - Infectious Disease Hx of Infectious Diseases: None - Past Medical History & Family History Past Medical History?: Yes - Past Social History Alcohol: None Drugs: Denies - CARDIAC Hx Cardiac Disorders: Yes Hx Circulatory Problems: Yes Other/Comment: scleroderma, reynaud's disease - PULMONARY Hx Respiratory Disorders: No - NEUROLOGICAL Hx Neurological Disorder: No - HEENT Hx HEENT Problems: No - RENAL Hx Chronic Kidney Disease: No - ENDOCRINE/METABOLIC Hx Endocrine Disorders: No - HEMATOLOGICAL/ONCOLOGICAL Hx Blood Disorders: No - INTEGUMENTARY Hx Dermatological Problems: No Other/Comment: Sclerderma. Reynauds. - MUSCULOSKELETAL/RHEUMATOLOGICAL Hx Musculoskeletal Disorders: No Hx Falls: No - GASTROINTESTINAL Hx Gastrointestinal Disorders: No - GENITOURINARY/GYNECOLOGICAL Hx Genitourinary Disorders: No - PSYCHIATRIC Hx Psychophysiologic Disorder: No Hx Substance Use: No - SURGICAL HISTORY Hx Surgeries: No Hx Hysterectomy: Yes (2002) Hx Vascular Surgery: Yes (left wrist and hand) Other/Comment: vascular surgery - ANESTHESIA Hx Anesthesia: Yes Hx Anesthesia Reactions: No Hx Malignant Hyperthermia: No Meds Home Medications: Home Medication List Medication Instructions Recorded Confirmed Type Acetaminophen [Acetaminophen 8 650 mg PO Q8 PRN #21 tablet.er 10/21/18 Rx Hour] Cephalexin [Keflex] 500 mg PO Q8 #21 capsule 10/21/18 Rx Meloxicam [Mobic] 15 mg PO DAILY PRN #10 tab 10/21/18 Rx Allergies/Adverse Reactions: Allergies Allergy/AdvReac Type Severity Reaction Status Date / Time No Known Allergies Allergy Verified 08/19/18 14:35 Physical Exam - Constitutional Appears: Non-toxic, No Acute Distress - Head Exam Head Exam: ATRAUMATIC, NORMOCEPHALIC - Extremities Exam Additional comments: LLE focused Vasc: DP and PT pulses palpable; cap refill <3 seconds to all digits; temp gradient warm to cool from proximal to distal; mild edema noted at the left fourth digit - localized Derm: no open wounds or lesions noted; left fourth digit distally shows previous wound/opening that is healed, dry blood appreciated; erythema locally about the fourth digit - does not extend proximally, no streaking or other color changes; no pus or drainage appreciated Ortho: pain and tenderness on palpation of the left fourth digit, no other gross pathology noted Neuro: gross and protective sensation intact - Neurological Exam Neurological exam: Alert, Oriented x3 - Psychiatric Exam Psychiatric exam: Normal Affect, Normal Mood Results - Vital Signs Recent Vital Signs: Last Vital Signs Temp 98.2 F 10/21/18 16:56 Pulse 68 10/21/18 16:56 Resp 18 10/21/18 16:56 BP 158/84 H 10/21/18 16:56 Pulse Ox 98 10/21/18 16:56 - Labs Result Diagrams: 10/21/18 15:33 10/21/18 15:33 Labs: Laboratory Results - last 24 hr 10/21/18 10/21/18 15:33 15:33 WBC 10.1 D RBC 4.80 Hgb 13.8 Hct 42.5 MCV 88.6 MCH 28.7 MCHC 32.4 L RDW 15.6 H Plt Count 281 MPV 8.3 Neut % (Auto) 70.8 Lymph % (Auto) 19.9 L [place] % (Auto) 7.7 Eos % (Auto) 0.5 Baso % (Auto) 1.1 Neut # (Auto) 7.2 H Lymph # (Auto) 2.0 [place] # (Auto) 0.8 Eos # (Auto) 0.1 Baso # (Auto) 0.1 ESR 27 Sodium 138 Potassium 4.5 Chloride 103 Carbon Dioxide 26 Anion Gap 14 BUN 11 Creatinine 0.7 Est GFR ( Amer) > 60 Est GFR (Non-Af Amer) > 60 Random Glucose 95 Calcium 9.1 Assessment & Plan - Assessment and Plan (Free Text) Assessment: 53F with pmhx of scleroderma and raynaud's with left fourth digit erythema and pain Plan: Patient seen and evaluated Discussed in detail with Dr. Simon Afebrile, absent leukocytosis X-ray reviewed - no pathology noted, normal radiograph Instructed patient on appropriate shoegear in order to prevent same tissue injury from occuring Rx Keflex for 7 days and follow up EOW at [facility] pod[facility] Educated on smoking and effects on delay of healing Instructed to avoid drinking alcohol while on antibiotics Return to the ED if complaints worsen or any clinical signs of infection present Dispensed surgical shoe Thank you for the consult - Date & Time Date: 10/21/18 Time: 22:38
== END 2018-10-21 17:04 | disposition home or self-care (01) ==
LOC: SUPCPDRO 13:38 → H.ER 13:38
DX: L03.032 Cellulitis of left toe (principal); I73.00 Raynaud's syndrome without gangrene

== ENCOUNTER 2018-12-26 15:25 | Inpatient (IN) | payer MEDICAID, SELFPAY ==
[2018-12-26] MEDS ORDERED: Oxycodone/Acetaminophen 5/325 mg Tab PO STA (16:15)
[2018-12-26] MEDS ORDERED: Piperacillin/Tazobact 3.375 GM in Sodium Chloride 0.9% 100 ML IVPB STA (16:19)
[2018-12-26] MEDS ORDERED: Oxycodone/Acetaminophen 5/325 mg Tab ONE ×2 (16:21→17:27)
[2018-12-26] MEDS ORDERED: Vancomycin 1 g Inj ONE (16:30)
--- NOTE | 2018-12-26 16:31 | ED PDOC ---
Lower Extremity Pain/Injury Time Seen by Provider: 12/26/18 15:36 Chief Complaint (Nursing): Lower Extremity Problem/Injury Chief Complaint (Provider): Lower Extremity Problem/Injury History Per: Patient History/Exam Limitations: no limitations Current Symptoms Are (Timing): Still Present Additional Complaint(s): 53 year old female presents to the ED with left fourth toe pain. Patient has bee n experiencing left fourth toe pain since August. Patient states she was seen here and followed up at the podiatry clinic a few times. She has been on two courses of antibiotics with no relief in symptoms. In fact, symptoms have been worsening. She was seen again in the podiatry clinic today, at which time they performed a bedside incision and drainage. PMD: Buck Simpson Past Medical History Reviewed: Historical Data, Nursing Documentation, Vital Signs Vital Signs: Last Vital Signs Temp 98.4 F 12/26/18 15:29 Pulse 71 12/26/18 15:29 Resp 16 12/26/18 15:29 BP 141/78 12/26/18 15:29 Pulse Ox 99 12/26/18 15:29 - Medical History PMH: Denies: Chronic Kidney Disease Other PMH: raynaud's disease and scleroderma - Surgical History Other surgeries: hand surgery for scleroderma - Family History Family History: States: Diabetes - Social History Current smoker - smoking cessation education provided: No Ex-Smoker (has not smoked in the last 12 months): No Alcohol: None Drugs: Denies - Home Medications Home Medications: Ambulatory Orders Medication Instructions Recorded Omeprazole Magnesium [Prilosec Otc] 20 mg PO DAILY 08/19/18 - Allergies Allergies/Adverse Reactions: Allergies Allergy/AdvReac Type Severity Reaction Status Date / Time No Known Allergies Allergy Verified 12/26/18 15:29 Review of Systems ROS Statement: Except As Marked, All Systems Reviewed And Found Negative Musculoskeletal: Positive for: Other (left fourth toe pain ) Physical Exam - Reviewed Nursing Documentation Reviewed: Yes Vital Signs Reviewed: Yes - Physical Exam Appears: Positive for: In Acute Distress (in mild painful distress) Head Exam: Positive for: ATRAUMATIC, NORMOCEPHALIC Skin: Positive for: Warm, Dry Eye Exam: Positive for: EOMI, PERRL ENT: Negative for: Pharyngeal Erythema, Tonsillar Exudate Neck: Positive for: Painless ROM, Supple Cardiovascular/Chest: Positive for: Regular Rate, Rhythm. Negative for: Murmur Respiratory: Positive for: Normal Breath Sounds. Negative for: Respiratory Distress Gastrointestinal/Abdominal: Positive for: Soft. Negative for: Tenderness Back: Positive for: Normal Inspection. Negative for: Muscle Spasm Extremity: Positive for: Other (Fresh dressing on left fourth toe. Hands demonstrate contractures at the fingers consistent with scleroderma) Lymphatic: Negative for: Adenopathy Neurologic/Psych: Positive for: Alert. Negative for: Motor/Sensory Deficits - Laboratory Results Result Diagrams: 12/26/18 16:35 12/26/18 16:35 - ECG O2 Sat by Pulse Oximetry: 99 (RA) Pulse Ox Interpretation: Normal Medical Decision Making Medical Decision Making: Time: 153 Impression: Left toe infection and persistent infection despite antibiotics. Plan: --CMP --Lact acid --CBC --ESR --PTT --PT/INR --CXR --Percocet --Vancomycin --Zosyn --Blood culture --Left foot XR Time: 1621 CXR: FINDINGS: LUNGS: Study is apical lordotic projection. No consolidations seen. PLEURA: No pneumothorax or pleural fluid seen. CARDIOVASCULAR: There is presence of aortic atherosclerotic calcification on x-ray. Heart size probably top-normal. No significant appearing pulmonary venous congestion. OSSEOUS STRUCTURES: Thoracic spondylosis. VISUALIZED UPPER ABDOMEN: Normal. OTHER FINDINGS: None. IMPRESSION: No acute pulmonary pathology seen. Other findings as above. Time: 1621 Left Foot XR FINDINGS: The soft tissues are slightly more dense on the current study compared the prior study but the 4th toe. Here there is some bandaging as well. No periosteal reaction or cortical interruption is seen to suggest osteomyelitis. No fracture dislocation is seen. The 5th middle and distal phalanx appear fused- developmental variation. No gross soft tissue gas is seen. However there is some mottled density attributed to the overlying bandaging over the primarily the 4th digit. Clinical correlation IMPRESSION: Tissue swelling compatible with the history of trauma and/or cellulitis. No gas-forming cellulitis seen. Findings affect primarily the 4th digit. No osseous changes appreciated to suggest osteomyelitis. Time: 1627 --Patient requires admission for IV antibiotics. Case discussed with podiatry resident and Dr. Meredith, hospitalist, for admission. Scribe Attestation: Documented by Isatu Abbasi, acting as a scribe for Ameena Willard MD. Provider Scribe Attestation: All medical record entries made by the Scribe were at my direction and personally dictated by me. I have reviewed the chart and agree that the record accurately reflects my personal performance of the history, physical exam, medical decision making, and the department course for this patient. I have also personally directed, reviewed, and agree with the discharge instructions and disposition. Disposition - Clinical Impression Clinical Impression: Abscess, toe, Cellulitis of fourth toe of left foot Counseled Patient/Family Regarding: Studies Performed, Diagnosis, Need For Followup - Disposition Disposition Time: 16:25 Condition: FAIR - Pt Status Changed To: Hospital Disposition Of: Inpatient - Admit Certification Admit to Inpatient:: After my assessment, the patient will require hospitalization for at least two midnights. This is because of the severity of symptoms shown, intensity of services needed, and/or the medical risk in this patient being treated as an outpatient. - POA Present On Arrival: None
--- NOTE | 2018-12-26 16:33 | RAD ---
Date of service: 12/26/2018 PROCEDURE: CHEST RADIOGRAPH, 1 VIEW HISTORY: infection COMPARISON: 08/19/2018 FINDINGS: LUNGS: Study is apical lordotic projection. No consolidations seen. PLEURA: No pneumothorax or pleural fluid seen. CARDIOVASCULAR: There is presence of aortic atherosclerotic calcification on x-ray. Heart size probably top-normal. No significant appearing pulmonary venous congestion. OSSEOUS STRUCTURES: Thoracic spondylosis. VISUALIZED UPPER ABDOMEN: Normal. OTHER FINDINGS: None. IMPRESSION: No acute pulmonary pathology seen. Other findings as above.
[2018-12-26 17:06] LABS: BASO % 0.7 % (0.0-2.0); EOS # 0.1 K/uL (0.0-0.7); EOS % 2.4 % (0.0-4.0); LYMPH # 1.6 K/uL (1.0-4.3); MEAN CELL VOLUME 86.6 fl (81.0-99.0); MEAN CORPUSCULAR HEMOGLOBIN 28.4 pg (27.0-31.0); MEAN CORPUSCULAR HGB CONC 32.7 g/dL (33.0-37.0); MEAN PLATELET VOLUME 9.3 fl (7.2-11.7); MONO # 0.4 K/uL (0.0-0.8); MONO % 6.7 % (0.0-10.0); NEUT # 3.8 K/uL (1.8-7.0); NEUT % 63.2 % (50.0-75.0); RBC 4.57 Mil/uL (3.80-5.20); RED CELL DISTRIBUTION WIDTH 15.8 % (11.5-14.5)
[2018-12-26 17:15] LABS: PARTIAL THROMBOPLASTIN TIME 29.8 Seconds (25.6-37.1)
[2018-12-26 17:23] LABS: ALB/GLOB RATIO 1.3 (1.0-2.1); ALBUMIN 4.3 g/dL (3.5-5.0); ALT/SGPT 25 U/L (9-52); AST/SGOT 33 U/L (14-36); BLOOD UREA NITROGEN 14 mg/dl (7-17); CALCIUM 9.1 mg/dL (8.4-10.2); GFR NON-AFRICAN AMERICAN > 60
--- NOTE | 2018-12-26 17:41 | CP.PCM.HP ---
History of Present Illness - History of Present Illness History of Present Illness: [facility] Consult Note Patient Name: PARVIZ GALLEGO Date of : 61 Patient Status: Inpatient Attending Provider: Roma Meredith Date: 12/26/18 17:06 Initialization Date: 12/26/18 17:06 <MillyPepper - Last Filed: 12/26/18 17:20> History of Present Illness - History of Present Illness History of Present Illness: CC: Left toe pain and redness HPI: 53 year old female patient, with PMHx of Scleroderma and Raynauds, admitted for left 4th digit infection after failing out patient therapy. Patient states that she has had continued pain to her left foot secondary to poor circulation from her Raynauds and has followed up in the podiatry clinic for the pain and redness. At that time, there were no open ulcerations, just irritation. She was prescribed two weeks of Keflex, however one week ago her skin developed an ulceration that was draining fluid to the same digit. She presented to the Podiatry clinic today, pus was expressed, and she was sent to the ED for IV antibiotics. Denies nausea/vomiting/fever/shortness of breath/chest pain. PMHx: Scleroderma, Raynauds PSHx: Hysterectomy SH: Tobacco use (Former heavy tobacco use, stopped for several years, started smoking 2 cigarettes a day for the past 6 months), socially drinks alcohol every other weekend, denies ilicit drug use Meds: Prilosec ALL: NKDA ED Course: VSS, L foot x-ray taken: no OM, CBC, CMP, Vanco/Zosyn x 1 dose, pain control Review of Systems - Constitutional Constitutional: As Per HPI Past Patient History - Infectious Disease Hx of Infectious Diseases: None - Past Medical History & Family History Past Medical History?: Yes - Past Social History Smoking Status: Light Smoker < 10 Cigarettes Daily - CARDIAC Hx Cardiac Disorders: Yes Hx Circulatory Problems: Yes Other/Comment: scleroderma, reynaud's disease - PULMONARY Hx Respiratory Disorders: No - NEUROLOGICAL Hx Neurological Disorder: No - HEENT Hx HEENT Problems: No - RENAL Hx Chronic Kidney Disease: No - ENDOCRINE/METABOLIC Hx Endocrine Disorders: No - HEMATOLOGICAL/ONCOLOGICAL Hx Blood Disorders: No - INTEGUMENTARY Hx Dermatological Problems: Yes Other/Comment: Sclerderma. Murali. - MUSCULOSKELETAL/RHEUMATOLOGICAL Hx Musculoskeletal Disorders: No Hx Falls: No - GASTROINTESTINAL Hx Gastrointestinal Disorders: No - GENITOURINARY/GYNECOLOGICAL Hx Genitourinary Disorders: No - PSYCHIATRIC Hx Psychophysiologic Disorder: No Hx Substance Use: No - SURGICAL HISTORY Hx Surgeries: No Hx Hysterectomy: Yes (2002) Hx Vascular Surgery: Yes (left wrist and hand) Other/Comment: vascular surgery - ANESTHESIA Hx Anesthesia: Yes Hx Anesthesia Reactions: No Hx Malignant Hyperthermia: No Meds Allergies/Adverse Reactions: Allergies Allergy/AdvReac Type Severity Reaction Status Date / Time No Known Allergies Allergy Verified 12/26/18 15:29 - Medications Medications: Current Medications Vancomycin HCl 1 gm/ Sodium (Chloride) 250 mls @ 166.667 mls/hr IV STAT STA; Protocol Stop: 12/26/18 17:48 Last Admin: 12/26/18 16:37 Dose: 166.667 mls/hr Piperacillin Sod/Tazobactam (Sod 3.375 gm/ Sodium Chloride) 100 mls @ 100 mls/hr IVPB STAT STA; Protocol Stop: 12/26/18 17:18 Physical Exam - Constitutional Appears: Non-toxic, No Acute Distress - Head Exam Head Exam: ATRAUMATIC, NORMOCEPHALIC - Eye Exam Eye Exam: Normal appearance Pupil Exam: NORMAL ACCOMODATION - ENT Exam ENT Exam: Mucous Membranes Moist - Respiratory Exam Respiratory Exam: Clear to Auscultation Bilateral, NORMAL BREATHING PATTERN - Cardiovascular Exam Cardiovascular Exam: REGULAR RHYTHM - GI/Abdominal Exam GI & Abdominal Exam: Normal Bowel Sounds, Soft - Extremities Exam Additional comments: Left lower extremity dressing clean/dry/intact - Neurological Exam Neurological exam: Alert, Oriented x3 - Psychiatric Exam Psychiatric exam: Normal Affect, Normal Mood - Skin Additional comments: CFT greater than 3 seconds to digits Left foot cool to touch DP/PT faintly palpable Results - Vital Signs Recent Vital Signs: Last Vital Signs Temp 98.4 F 12/26/18 16:59 Pulse 71 12/26/18 16:59 Resp 16 12/26/18 16:59 BP 141/78 12/26/18 16:59 Pulse Ox 99 12/26/18 16:43 - Labs Result Diagrams: 12/26/18 16:35 Assessment & Plan - Assessment and Plan (Free Text) Assessment: 53 year old female patient, with PMHx of Scleroderma and Raynauds, admitted for left 4th digit infection after failing out patient therapy. Plan: 1. Left 4th toe ulceration - Acute - Afebrile, VSS - L foot x-rays taken; no evidence of OM - Podiatry Consult; reccs appreciated - IV abx, Vanco/Zosyn - C/w pain management, Tylenol 2. Scleroderma - Chronic - No home medication 3. Raynauds - Chronic - No home medication 4. Tobacco use - Chronic - Nicotine patch 14mg 5. DVT - Start Lovenox 40mg SC daily tomorrow 6. Diet - Regular Diet 7. Code Status - Full Code - Date & Time Date: 12/26/18 Time: 17:36 <Roma Meredith - Last Filed: 12/26/18 17:40> Meds - Medications Medications: Current Medications Acetaminophen (Tylenol 325mg Tab) 650 mg PO Q4 PRN PRN Reason: Pain, moderate (4-7) Acetaminophen (Tylenol 325mg Tab) 325 mg PO Q4 PRN PRN Reason: Pain, Mild (1-3) Enoxaparin Sodium (Lovenox) 40 mg SC DAILY [facility]; Protocol Vancomycin HCl 1 gm/ Sodium (Chloride) 250 mls @ 166.667 mls/hr IV STAT STA; Protocol Stop: 12/26/18 17:48 Last Admin: 12/26/18 16:37 Dose: 166.667 mls/hr Vancomycin HCl 1 gm/ Sodium (Chloride) 250 mls @ 166.667 mls/hr IVPB Q12 [facility]; Protocol Piperacillin Sod/Tazobactam (Sod 3.375 gm/ Sodium Chloride) 100 mls @ 100 mls/hr IVPB Q6 [facility]; Protocol Nicotine (Nicoderm Cq) 1 patch TD DAILY [facility] Pantoprazole Sodium (Protonix Ec Tab) 40 mg PO DAILY [facility] Results - Vital Signs Recent Vital Signs: Last Vital Signs Temp 98.4 F 12/26/18 16:59 Pulse 71 12/26/18 16:59 Resp 16 12/26/18 16:59 BP 141/78 12/26/18 16:59 Pulse Ox 99 12/26/18 16:43 - Labs Result Diagrams: 12/26/18 16:35 12/26/18 16:35 Labs: Laboratory Results - last 24 hr 12/26/18 12/26/18 12/26/18 16:35 16:35 16:35 WBC 6.0 RBC 4.57 Hgb 13.0 Hct 39.6 MCV 86.6 D MCH 28.4 MCHC 32.7 L RDW 15.8 H Plt Count 228 MPV 9.3 Neut % (Auto) 63.2 Lymph % (Auto) 27.0 [place] % (Auto) 6.7 Eos % (Auto) 2.4 Baso % (Auto) 0.7 Neut # (Auto) 3.8 Lymph # (Auto) 1.6 [place] # (Auto) 0.4 Eos # (Auto) 0.1 Baso # (Auto) 0.0 PT 11.0 INR 1.0 APTT 29.8 Sodium 137 Potassium 3.8 Chloride 99 Carbon Dioxide 27 Anion Gap 15 BUN 14 Creatinine 0.6 L Est GFR ( Amer) > 60 Est GFR (Non-Af Amer) > 60 Random Glucose 101 Lactic Acid Calcium 9.1 Total Bilirubin 0.3 AST 33 ALT 25 Alkaline Phosphatase 101 Total Protein 7.6 Albumin 4.3 Globulin 3.3 Albumin/Globulin Ratio 1.3 12/26/18 16:51 WBC RBC Hgb Hct MCV MCH MCHC RDW Plt Count MPV Neut % (Auto) Lymph % (Auto) [place] % (Auto) Eos % (Auto) Baso % (Auto) Neut # (Auto) Lymph # (Auto) [place] # (Auto) Eos # (Auto) Baso # (Auto) PT INR APTT Sodium Potassium Chloride Carbon Dioxide Anion Gap BUN Creatinine Est GFR ( Amer) Est GFR (Non-Af Amer) Random Glucose Lactic Acid 0.9 Calcium Total Bilirubin AST ALT Alkaline Phosphatase Total Protein Albumin Globulin Albumin/Globulin Ratio Attending/Attestation - Attestation I have personally seen and examined this patient.: Yes I have fully participated in the care of the patient.: Yes I have reviewed all pertinent clinical information: Yes Notes (Text): 12/26/18 17:40 Agree with findings and plan as above. THIS IS THE H AND P Past Patient History - Infectious Disease Hx of Infectious Diseases: None - Past Medical History & Family History Past Medical History?: Yes - Past Social History Smoking Status: Light Smoker < 10 Cigarettes Daily - CARDIAC Hx Cardiac Disorders: Yes Hx Circulatory Problems: Yes Other/Comment: scleroderma, reynaud's disease - PULMONARY Hx Respiratory Disorders: No - NEUROLOGICAL Hx Neurological Disorder: No - HEENT Hx HEENT Problems: No - RENAL Hx Chronic Kidney Disease: No - ENDOCRINE/METABOLIC Hx Endocrine Disorders: No - HEMATOLOGICAL/ONCOLOGICAL Hx Blood Disorders: No - INTEGUMENTARY Hx Dermatological Problems: Yes Other/Comment: Sclerderma. Reynauds. - MUSCULOSKELETAL/RHEUMATOLOGICAL Hx Musculoskeletal Disorders: No Hx Falls: No - GASTROINTESTINAL Hx Gastrointestinal Disorders: No - GENITOURINARY/GYNECOLOGICAL Hx Genitourinary Disorders: No - PSYCHIATRIC Hx Psychophysiologic Disorder: No Hx Substance Use: No - SURGICAL HISTORY Hx Surgeries: No Hx Hysterectomy: Yes (2002) Hx Vascular Surgery: Yes (left wrist and hand) Other/Comment: vascular surgery - ANESTHESIA Hx Anesthesia: Yes Hx Anesthesia Reactions: No Hx Malignant Hyperthermia: No Meds Allergies/Adverse Reactions: Allergies Allergy/AdvReac Type Severity Reaction Status Date / Time No Known Allergies Allergy Verified 12/26/18 15:29 Results - Vital Signs Recent Vital Signs: Last Vital Signs Temp 98.4 F 12/26/18 16:59 Pulse 71 12/26/18 16:59 Resp 16 12/26/18 16:59 BP 141/78 12/26/18 16:59 Pulse Ox 99 12/26/18 16:43 - Labs Result Diagrams: 12/26/18 16:35 12/26/18 16:35 Labs: Laboratory Results - last 24 hr 12/26/18 12/26/18 12/26/18 16:35 16:35 16:35 WBC 6.0 RBC 4.57 Hgb 13.0 Hct 39.6 MCV 86.6 D MCH 28.4 MCHC 32.7 L RDW 15.8 H Plt Count 228 MPV 9.3 Neut % (Auto) 63.2 Lymph % (Auto) 27.0 [place] % (Auto) 6.7 Eos % (Auto) 2.4 Baso % (Auto) 0.7 Neut # (Auto) 3.8 Lymph # (Auto) 1.6 [place] # (Auto) 0.4 Eos # (Auto) 0.1 Baso # (Auto) 0.0 PT 11.0 INR 1.0 APTT 29.8 Sodium 137 Potassium 3.8 Chloride 99 Carbon Dioxide 27 Anion Gap 15 BUN 14 Creatinine 0.6 L Est GFR ( Amer) > 60 Est GFR (Non-Af Amer) > 60 Random Glucose 101 Lactic Acid Calcium 9.1 Total Bilirubin 0.3 AST 33 ALT 25 Alkaline Phosphatase 101 Total Protein 7.6 Albumin 4.3 Globulin 3.3 Albumin/Globulin Ratio 1.3 12/26/18 16:51 WBC RBC Hgb Hct MCV MCH MCHC RDW Plt Count MPV Neut % (Auto) Lymph % (Auto) [place] % (Auto) Eos % (Auto) Baso % (Auto) Neut # (Auto) Lymph # (Auto) [place] # (Auto) Eos # (Auto) Baso # (Auto) PT INR APTT Sodium Potassium Chloride Carbon Dioxide Anion Gap BUN Creatinine Est GFR ( Amer) Est GFR (Non-Af Amer) Random Glucose Lactic Acid 0.9 Calcium Total Bilirubin AST ALT Alkaline Phosphatase Total Protein Albumin Globulin Albumin/Globulin Ratio
[2018-12-26] MEDS ORDERED: Piperacillin/Tazobact 3.375 GM in Sodium Chloride 0.9% 100 ML IVPB SCH (22:00)
[2018-12-26] MEDS: Piperacillin/Tazobact 3.375 GM in Sodium Chloride 0.9% 100 ML IVPB SCH (23:55)
[2018-12-27] MEDS: Piperacillin/Tazobact 3.375 GM in Sodium Chloride 0.9% 100 ML IVPB SCH ×4 (05:18→23:25)
--- NOTE | 2018-12-27 08:55 | CP.PCM.CON ---
<Frank Bonilla - Last Filed: 12/27/18 18:21> History of Present Illness - History of Present Illness History of Present Illness: Frank Bonilla PGY1, Cardio consult note for Dr Willard Pt is a 53yo unemployed female smoker with a PMH of scleroderma and Raynauds who presented after failiing out pt treatment for an infection in her toe on her left foot and failing out pt antibiotics. Pt states [facility] and recently saw the hvac/r service technician there who debrided her toe recently and advised her to go to the hospital for in pt treatment. Pt states she bought some new boots this winter and developed the ulcer on her foot around [place]. Pt denies chest pain or SOB. A 12 point ROS was obtained and added to the HPI where appropriate. Past Patient History - Infectious Disease Hx of Infectious Diseases: None - Past Medical History & Family History Past Medical History?: Yes - Past Social History Alcohol: None Drugs: Denies - CARDIAC Hx Cardiac Disorders: Yes Hx Circulatory Problems: Yes Other/Comment: scleroderma, reynaud's disease - PULMONARY Hx Respiratory Disorders: No - NEUROLOGICAL Hx Neurological Disorder: No - HEENT Hx HEENT Problems: No - RENAL Hx Chronic Kidney Disease: No - ENDOCRINE/METABOLIC Hx Endocrine Disorders: No - HEMATOLOGICAL/ONCOLOGICAL Hx Blood Disorders: No - INTEGUMENTARY Hx Dermatological Problems: Yes - MUSCULOSKELETAL/RHEUMATOLOGICAL Hx Musculoskeletal Disorders: No Hx Falls: No - GASTROINTESTINAL Hx Gastrointestinal Disorders: No - GENITOURINARY/GYNECOLOGICAL Hx Genitourinary Disorders: No - PSYCHIATRIC Hx Psychophysiologic Disorder: No Hx Substance Use: No - SURGICAL HISTORY Hx Surgeries: Yes Hx Cataract Extraction: Yes Hx Hysterectomy: Yes (2002) Hx Vascular Surgery: Yes (left wrist and hand) Other/Comment: vascular surgery - ANESTHESIA Hx Anesthesia: Yes Hx Anesthesia Reactions: No Hx Malignant Hyperthermia: No Meds Allergies/Adverse Reactions: Allergies Allergy/AdvReac Type Severity Reaction Status Date / Time No Known Allergies Allergy Verified 12/26/18 15:29 - Medications Medications: Current Medications Acetaminophen (Tylenol 325mg Tab) 650 mg PO Q4 PRN PRN Reason: Pain, moderate (4-7) Last Admin: 12/27/18 08:26 Dose: 650 mg Acetaminophen (Tylenol 325mg Tab) 325 mg PO Q4 PRN PRN Reason: Pain, Mild (1-3) Enoxaparin Sodium (Lovenox) 40 mg SC DAILY [facility]; Protocol Vancomycin HCl 1 gm/ Sodium (Chloride) 250 mls @ 166.667 mls/hr IVPB Q12 [facility]; Protocol Last Admin: 12/26/18 20:54 Dose: 166.667 mls/hr Piperacillin Sod/Tazobactam (Sod 3.375 gm/ Sodium Chloride) 100 mls @ 100 mls/hr IVPB Q6H [facility]; Protocol Last Admin: 12/27/18 05:18 Dose: 100 mls/hr Nicotine (Nicoderm Cq) 1 patch TD DAILY [facility] Pantoprazole Sodium (Protonix Ec Tab) 40 mg PO DAILY [facility] Physical Exam - Constitutional Appears: No Acute Distress - Head Exam Head Exam: ATRAUMATIC, NORMOCEPHALIC - Eye Exam Eye Exam: EOMI - ENT Exam ENT Exam: Mucous Membranes Moist - Neck Exam Neck exam: Positive for: Full Rom - Respiratory Exam Respiratory Exam: Clear to Auscultation Bilateral, NORMAL BREATHING PATTERN. absent: Accessory Muscle Use, Respiratory Distress - Cardiovascular Exam Cardiovascular Exam: RRR, +S1, +S2. absent: Diastolic murmur, Systolic Murmur - GI/Abdominal Exam GI & Abdominal Exam: Normal Bowel Sounds, Soft - Extremities Exam Extremities exam: Positive for: tenderness. Negative for: pedal edema Additional comments: left foot bandage is clean dry and intact - Neurological Exam Neurological exam: Normal Gait, Oriented x3 - Psychiatric Exam Psychiatric exam: Normal Affect, Normal Mood - Skin Skin Exam: Dry, Intact, Normal Color Results - Vital Signs Recent Vital Signs: Last Vital Signs Temp 97.6 F 12/27/18 08:12 Pulse 72 12/27/18 08:12 Resp 20 12/27/18 08:12 BP 107/67 12/27/18 08:12 Pulse Ox 97 12/27/18 08:12 - Labs Result Diagrams: 12/26/18 16:35 12/26/18 16:35 Labs: Laboratory Results - last 24 hr 12/26/18 12/26/18 12/26/18 16:35 16:35 16:35 WBC 6.0 RBC 4.57 Hgb 13.0 Hct 39.6 MCV 86.6 D MCH 28.4 MCHC 32.7 L RDW 15.8 H Plt Count 228 MPV 9.3 Neut % (Auto) 63.2 Lymph % (Auto) 27.0 [place] % (Auto) 6.7 Eos % (Auto) 2.4 Baso % (Auto) 0.7 Neut # (Auto) 3.8 Lymph # (Auto) 1.6 [place] # (Auto) 0.4 Eos # (Auto) 0.1 Baso # (Auto) 0.0 ESR 23 PT 11.0 INR 1.0 APTT 29.8 Sodium 137 Potassium 3.8 Chloride 99 Carbon Dioxide 27 Anion Gap 15 BUN 14 Creatinine 0.6 L Est GFR ( Amer) > 60 Est GFR (Non-Af Amer) > 60 Random Glucose 101 Lactic Acid Calcium 9.1 Total Bilirubin 0.3 AST 33 ALT 25 Alkaline Phosphatase 101 Total Protein 7.6 Albumin 4.3 Globulin 3.3 Albumin/Globulin Ratio 1.3 12/26/18 16:51 WBC RBC Hgb Hct MCV MCH MCHC RDW Plt Count MPV Neut % (Auto) Lymph % (Auto) [place] % (Auto) Eos % (Auto) Baso % (Auto) Neut # (Auto) Lymph # (Auto) [place] # (Auto) Eos # (Auto) Baso # (Auto) ESR PT INR APTT Sodium Potassium Chloride Carbon Dioxide Anion Gap BUN Creatinine Est GFR ( Amer) Est GFR (Non-Af Amer) Random Glucose Lactic Acid 0.9 Calcium Total Bilirubin AST ALT Alkaline Phosphatase Total Protein Albumin Globulin Albumin/Globulin Ratio Assessment & Plan - Assessment and Plan (Free Text) Assessment: Foot ulcer scleroderma raynauds Plan: Foot ulcer HA1C follow up Angiography CT follow up Pt seen, examined, assessment and plan discussed with Dr Sudheer Bonilla PGY1, Internal Medicine Resident - Date & Time Date: 12/27/18 Time: 08:56 <Nino Willard - Last Filed: 12/28/18 11:47> Meds - Medications Medications: Current Medications Acetaminophen (Tylenol 325mg Tab) 650 mg PO Q4 PRN PRN Reason: Pain, moderate (4-7) Last Admin: 12/27/18 08:26 Dose: 650 mg Acetaminophen (Tylenol 325mg Tab) 325 mg PO Q4 PRN PRN Reason: Pain, Mild (1-3) Aspirin (Aspirin Chewable) 81 mg PO DAILY [facility] Last Admin: 12/28/18 08:59 Dose: 81 mg Enoxaparin Sodium (Lovenox) 40 mg SC DAILY [facility]; Protocol Last Admin: 12/28/18 08:54 Dose: 40 mg Vancomycin HCl 1 gm/ Sodium (Chloride) 250 mls @ 166.667 mls/hr IVPB Q12 [facility]; Protocol Last Admin: 12/28/18 08:58 Dose: 166.667 mls/hr Piperacillin Sod/Tazobactam (Sod 3.375 gm/ Sodium Chloride) 100 mls @ 100 mls/hr IVPB Q6H [facility]; Protocol Last Admin: 12/28/18 05:42 Dose: 100 mls/hr Ketorolac Tromethamine (Toradol) 30 mg IVP Q6 PRN PRN Reason: Pain, severe (8-10) Last Admin: 12/28/18 09:40 Dose: 30 mg Ketorolac Tromethamine (Toradol) 15 mg IVP Q6 PRN PRN Reason: Pain, moderate (4-7) Nicotine (Nicoderm Cq) 1 patch TD DAILY [facility] Last Admin: 12/28/18 09:02 Dose: Not Given Nifedipine (Procardia Xl) 30 mg PO DAILY [facility] Last Admin: 12/28/18 08:57 Dose: 30 mg Pantoprazole Sodium (Protonix Ec Tab) 40 mg PO DAILY [facility] Last Admin: 12/28/18 08:58 Dose: 40 mg Results - Vital Signs Recent Vital Signs: Last Vital Signs Temp 97.5 F L 12/28/18 07:57 Pulse 81 12/28/18 08:57 Resp 20 12/28/18 07:57 BP 144/77 12/28/18 08:57 Pulse Ox 98 12/28/18 07:57 - Labs Result Diagrams: 12/28/18 06:40 12/28/18 06:40 Labs: Laboratory Results - last 24 hr 12/27/18 12/28/18 12/28/18 14:18 06:40 06:40 WBC 5.9 RBC 4.32 Hgb 12.3 Hct 37.8 MCV 87.3 MCH 28.6 MCHC 32.7 L RDW 15.8 H Plt Count 195 ESR 14 Sodium 137 Potassium 4.1 Chloride 103 Carbon Dioxide 23 Anion Gap 15 BUN 15 Creatinine 0.7 Est GFR ( Amer) > 60 Est GFR (Non-Af Amer) > 60 Random Glucose 92 Calcium 8.3 L Attending/Attestation - Attestation I have personally seen and examined this patient.: Yes I have fully participated in the care of the patient.: Yes I have reviewed all pertinent clinical information: Yes Notes (Text): 12/28/18 11:46 53-year-old female being referred for evaluation of lower extremity wound which started off with self explained ulcer after wearing some tight footwear patient had prior history of ray nods was on calcium channel blockers in the remote past but after losing insurance stopped taking the medication underwent a CTA of the lower extremities which shows no atherosclerotic vascular disease with distal small vessels consistent with possible underlying ray nods. CTA was reviewed showed no vascular disease Small vessels distally consistent with underlying ray nods I initiate her on calcium channel blockers Check ESR CRP for active vasculitis
[2018-12-27] MEDS: Pantoprazole 40 mg EC Tab PO SCH (10:22)
[2018-12-27] MEDS: Enoxaparin 40 mg Syringe SC SCH (10:23)
[2018-12-27] MEDS ORDERED: Iodixanol 320 MG/ML 100 ML BOTTLE IV ONE (10:53)
[2018-12-27] MEDS ORDERED: Iodixanol 320 mg/ml 50 ml Sol IV ONE (10:53)
[2018-12-27] MEDS ORDERED: Sodium Chloride 0.9% 100 ML ONE (10:53)
--- NOTE | 2018-12-27 11:09 | CP.PCM.PN ---
<MillyPepper - Last Filed: 12/27/18 11:25> Subjective - Date & Time of Evaluation Date of Evaluation: 12/27/18 Time of Evaluation: 11:07 - Subjective Subjective: Patient seen and evaluated this AM. No acute events overnight. Patient reports significant pain to left 4th digit overnight, relieved by Toradol. Denies nausea/vomiting/fever/shortness of breath/chest pain. Objective - Vital Signs/Intake and Output Vital Signs (last 24 hours): Temp Pulse Resp BP Pulse Ox 97.6 F 72 20 107/67 97 12/27/18 08:12 12/27/18 08:12 12/27/18 08:12 12/27/18 08:12 12/27/18 08:12 - Medications Medications: Current Medications Acetaminophen (Tylenol 325mg Tab) 650 mg PO Q4 PRN PRN Reason: Pain, moderate (4-7) Last Admin: 12/27/18 08:26 Dose: 650 mg Acetaminophen (Tylenol 325mg Tab) 325 mg PO Q4 PRN PRN Reason: Pain, Mild (1-3) Enoxaparin Sodium (Lovenox) 40 mg SC DAILY [facility]; Protocol Last Admin: 12/27/18 10:23 Dose: 40 mg Vancomycin HCl 1 gm/ Sodium (Chloride) 250 mls @ 166.667 mls/hr IVPB Q12 [facility]; Protocol Last Admin: 12/26/18 20:54 Dose: 166.667 mls/hr Piperacillin Sod/Tazobactam (Sod 3.375 gm/ Sodium Chloride) 100 mls @ 100 mls/hr IVPB Q6H [facility]; Protocol Last Admin: 12/27/18 05:18 Dose: 100 mls/hr Ketorolac Tromethamine (Toradol) 30 mg IVP Q6 PRN PRN Reason: Pain, severe (8-10) Last Admin: 12/27/18 10:18 Dose: 30 mg Ketorolac Tromethamine (Toradol) 15 mg IVP Q6 PRN PRN Reason: Pain, moderate (4-7) Nicotine (Nicoderm Cq) 1 patch TD DAILY [facility] Last Admin: 12/27/18 10:23 Dose: 1 patch Pantoprazole Sodium (Protonix Ec Tab) 40 mg PO DAILY [facility] Last Admin: 12/27/18 10:22 Dose: 40 mg - Labs Labs: 12/26/18 16:35 12/26/18 16:35 PT 11.0 Seconds (9.8-13.1) 12/26/18 16:35 INR 1.0 12/26/18 16:35 APTT 29.8 Seconds (25.6-37.1) 12/26/18 16:35 - Constitutional Appears: Non-toxic, No Acute Distress - Head Exam Head Exam: ATRAUMATIC, NORMOCEPHALIC - Eye Exam Eye Exam: Normal appearance - Cardiovascular Exam Cardiovascular Exam: REGULAR RHYTHM - GI/Abdominal Exam GI & Abdominal Exam: Soft, Normal Bowel Sounds - Extremities Exam Additional comments: Left lower extremity cool to touch, CFT > 3 seconds, pulses monophasic and biphasic on doppler bedside Left 4th digit lesion, no active purulence or drainage Dried sanginous fluid appreciated - Back Exam Back Exam: NORMAL INSPECTION - Neurological Exam Neurological Exam: Alert, Awake, Oriented x3 - Psychiatric Exam Psychiatric exam: Normal Affect, Normal Mood - Skin Skin Exam: Warm Assessment and Plan - Assessment and Plan (Free Text) Assessment: 53 year old female patient, with PMHx of Scleroderma and Raynauds, admitted for left 4th digit infection after failing out patient therapy. Plan: 1. Left 4th toe ulceration - Acute - Afebrile, VSS - L foot x-rays taken; no evidence of OM - Podiatry Consult; reccs appreciated - Vasc Consult; reccs appreciated - CT angio ordered - IV abx, Vanco/Zosyn - C/w pain management 2. Scleroderma - Chronic - No home medication 3. Raynauds - Chronic - No home medication 4. Tobacco use - Chronic - Nicotine patch 14mg 5. DVT - Start Lovenox 40mg SC daily tomorrow 6. Diet - Regular Diet 7. Code Status - Full Code <Deysi Jacobs - Last Filed: 12/27/18 17:59> Objective - Vital Signs/Intake and Output Vital Signs (last 24 hours): Temp Pulse Resp BP Pulse Ox 98.6 F 69 18 126/75 97 12/27/18 16:00 12/27/18 16:00 12/27/18 16:00 12/27/18 16:00 12/27/18 16:00 - Medications Medications: Current Medications Acetaminophen (Tylenol 325mg Tab) 650 mg PO Q4 PRN PRN Reason: Pain, moderate (4-7) Last Admin: 12/27/18 08:26 Dose: 650 mg Acetaminophen (Tylenol 325mg Tab) 325 mg PO Q4 PRN PRN Reason: Pain, Mild (1-3) Aspirin (Aspirin Chewable) 81 mg PO DAILY [facility] Enoxaparin Sodium (Lovenox) 40 mg SC DAILY [facility]; Protocol Last Admin: 12/27/18 10:23 Dose: 40 mg Vancomycin HCl 1 gm/ Sodium (Chloride) 250 mls @ 166.667 mls/hr IVPB Q12 [facility]; Protocol Last Admin: 12/27/18 13:25 Dose: 166.667 mls/hr Piperacillin Sod/Tazobactam (Sod 3.375 gm/ Sodium Chloride) 100 mls @ 100 mls/hr IVPB Q6H [facility]; Protocol Last Admin: 12/27/18 17:30 Dose: 100 mls/hr Ketorolac Tromethamine (Toradol) 30 mg IVP Q6 PRN PRN Reason: Pain, severe (8-10) Last Admin: 12/27/18 15:32 Dose: 30 mg Ketorolac Tromethamine (Toradol) 15 mg IVP Q6 PRN PRN Reason: Pain, moderate (4-7) Nicotine (Nicoderm Cq) 1 patch TD DAILY [facility] Last Admin: 12/27/18 10:23 Dose: 1 patch Nifedipine (Procardia Xl) 30 mg PO DAILY [facility] Pantoprazole Sodium (Protonix Ec Tab) 40 mg PO DAILY [facility] Last Admin: 12/27/18 10:22 Dose: 40 mg - Labs Labs: 12/26/18 16:35 12/26/18 16:35 PT 11.0 Seconds (9.8-13.1) 12/26/18 16:35 INR 1.0 12/26/18 16:35 APTT 29.8 Seconds (25.6-37.1) 12/26/18 16:35 Attending/Attestation - Attestation I have personally seen and examined this patient.: Yes I have fully participated in the care of the patient.: Yes I have reviewed all pertinent clinical information, including history, physical exam and plan: Yes Notes (Text): Left Foot 4th Toe Ulcer Scleroderma/Raynauds -cont IV Zosyn and Vanco - Vascular specialist consult - Dr Willard- rec Angiogram - Podiatry on consult - cont IGNACIA, Le[place] 12/27/18 17:59
--- NOTE | 2018-12-27 17:01 | CP.PCM.PN ---
Subjective - Date & Time of Evaluation Date of Evaluation: 12/28/18 Time of Evaluation: 07:07 - Subjective Subjective: Podiatry consult/progress note for Dr. Simpson, 53 year old female patient with past medical history of scleroderma and raynaud's seen and evaluated for follow up of left fourth digit pain and redness. Patient was seen in the Podiatry clinic and sent to the ED for a vascular workup and for IV Abx. She states the pain started more than a month ago, and visited [facility], and was referred to outpatient clinic. Patient was given PO antibiotics for 7 days which she finished. Patient now presents with more pain to left 4th digit and notices purulent discharge. Patient denies of any systemic symptoms of infection including nausea, vomitting, fever chills. Patient takes [id number] NSAIDs for pain control. Patient states her pain has worsened to the digit. Patient denies any other pedal complaints. Patient was seen resting comfortably in bed. She denies N/V/F/SOB/CP. Objective - Vital Signs/Intake and Output Vital Signs (last 24 hours): Temp Pulse Resp BP Pulse Ox 98.6 F 69 18 126/75 97 12/27/18 16:00 12/27/18 16:00 12/27/18 16:00 12/27/18 16:00 12/27/18 16:00 - Medications Medications: Current Medications Acetaminophen (Tylenol 325mg Tab) 650 mg PO Q4 PRN PRN Reason: Pain, moderate (4-7) Last Admin: 12/27/18 08:26 Dose: 650 mg Acetaminophen (Tylenol 325mg Tab) 325 mg PO Q4 PRN PRN Reason: Pain, Mild (1-3) Aspirin (Aspirin Chewable) 81 mg PO DAILY [facility] Enoxaparin Sodium (Lovenox) 40 mg SC DAILY [facility]; Protocol Last Admin: 12/27/18 10:23 Dose: 40 mg Vancomycin HCl 1 gm/ Sodium (Chloride) 250 mls @ 166.667 mls/hr IVPB Q12 [facility]; Protocol Last Admin: 12/27/18 13:25 Dose: 166.667 mls/hr Piperacillin Sod/Tazobactam (Sod 3.375 gm/ Sodium Chloride) 100 mls @ 100 mls /hr IVPB Q6H [facility]; Protocol Last Admin: 12/27/18 12:30 Dose: 100 mls/hr Ketorolac Tromethamine (Toradol) 30 mg IVP Q6 PRN PRN Reason: Pain, severe (8-10) Last Admin: 12/27/18 15:32 Dose: 30 mg Ketorolac Tromethamine (Toradol) 15 mg IVP Q6 PRN PRN Reason: Pain, moderate (4-7) Nicotine (Nicoderm Cq) 1 patch TD DAILY [facility] Last Admin: 12/27/18 10:23 Dose: 1 patch Nifedipine (Procardia Xl) 30 mg PO DAILY [facility] Pantoprazole Sodium (Protonix Ec Tab) 40 mg PO DAILY [facility] Last Admin: 12/27/18 10:22 Dose: 40 mg - Labs Labs: 12/26/18 16:35 12/26/18 16:35 PT 11.0 Seconds (9.8-13.1) 12/26/18 16:35 INR 1.0 12/26/18 16:35 APTT 29.8 Seconds (25.6-37.1) 12/26/18 16:35 - Constitutional Appears: Well, Non-toxic, No Acute Distress - Head Exam Head Exam: ATRAUMATIC, NORMOCEPHALIC - Extremities Exam Additional comments: LLE focused Vasc: Non-palpable DP and PT noted bilaterally. [employer] <4 seconds noted to left foot digits. Skin warm to touch bilaterally Derm: Open wound noted to distal aspect of left 4th digit measuring 1cm x 1cm x 0.2cm with fibrotic tissue. minimal drainage noted at this time. No purulent discharge noted. No probe to bone. Mild malodor noted. Erythema with area > 3 cm noted around the wound consistent with cellulitis. Ortho: pain and tenderness on palpation of the left fourth digit, no other gross pathology noted Neuro: gross and protective sensation intact. - Neurological Exam Neurological Exam: Alert, Awake, Oriented x3 - Psychiatric Exam Psychiatric exam: Normal Affect, Normal Mood Assessment and Plan - Assessment and Plan (Free Text) Assessment: 53 y/o female patient seen and evaluated in Podiatry clinic, sent to ED for admission for vascular workup and IV Abx Plan: Patient was seen, evaluated Plan was discussed with Dr. Simpson Chart, labs and vitals were reviewed Left foot X-ray: tissue swelling compatible with trauma or cellulitis, no gas forming cellulitis, no osseous changes appreciated to suggest osteomyelitis Wound Culture obtained Wound dressed with betadine, DSD Ordered Vascular consult- recommendations appreciated- pending plan CT Angiogram was performed Infectious disease consult ordered- recommendations appreciated Podiatry will continue to follow patient while in house
[2018-12-28] MEDS: Piperacillin/Tazobact 3.375 GM in Sodium Chloride 0.9% 100 ML IVPB SCH ×2 (05:42→12:04)
--- NOTE | 2018-12-28 07:28 | CP.PCM.PN ---
Subjective - Date & Time of Evaluation Date of Evaluation: 12/28/18 Time of Evaluation: 07:28 Objective - Vital Signs/Intake and Output Vital Signs (last 24 hours): Temp Pulse Resp BP Pulse Ox 98 F 68 18 126/73 98 12/28/18 00:17 12/28/18 00:17 12/28/18 00:17 12/28/18 00:17 12/28/18 00:17 - Medications Medications: Current Medications Acetaminophen (Tylenol 325mg Tab) 650 mg PO Q4 PRN PRN Reason: Pain, moderate (4-7) Last Admin: 12/27/18 08:26 Dose: 650 mg Acetaminophen (Tylenol 325mg Tab) 325 mg PO Q4 PRN PRN Reason: Pain, Mild (1-3) Aspirin (Aspirin Chewable) 81 mg PO DAILY [facility] Enoxaparin Sodium (Lovenox) 40 mg SC DAILY [facility]; Protocol Last Admin: 12/27/18 10:23 Dose: 40 mg Vancomycin HCl 1 gm/ Sodium (Chloride) 250 mls @ 166.667 mls/hr IVPB Q12 [facility]; Protocol Last Admin: 12/27/18 21:39 Dose: 166.667 mls/hr Piperacillin Sod/Tazobactam (Sod 3.375 gm/ Sodium Chloride) 100 mls @ 100 mls/hr IVPB Q6H [facility]; Protocol Last Admin: 12/28/18 05:42 Dose: 100 mls/hr Ketorolac Tromethamine (Toradol) 30 mg IVP Q6 PRN PRN Reason: Pain, severe (8-10) Last Admin: 12/27/18 23:29 Dose: 30 mg Ketorolac Tromethamine (Toradol) 15 mg IVP Q6 PRN PRN Reason: Pain, moderate (4-7) Nicotine (Nicoderm Cq) 1 patch TD DAILY [facility] Last Admin: 12/27/18 18:26 Dose: Not Given Nifedipine (Procardia Xl) 30 mg PO DAILY [facility] Pantoprazole Sodium (Protonix Ec Tab) 40 mg PO DAILY [facility] Last Admin: 12/27/18 10:22 Dose: 40 mg - Labs Labs: 12/26/18 16:35 12/26/18 16:35 PT 11.0 Seconds (9.8-13.1) 12/26/18 16:35 INR 1.0 12/26/18 16:35 APTT 29.8 Seconds (25.6-37.1) 12/26/18 16:35 - Constitutional Appears: Non-toxic, No Acute Distress - Head Exam Head Exam: ATRAUMATIC, NORMOCEPHALIC - Eye Exam Eye Exam: Normal appearance Pupil Exam: NORMAL ACCOMODATION - ENT Exam ENT Exam: Mucous Membranes Moist, Normal Exam - Respiratory Exam Respiratory Exam: Clear to Ausculation Bilateral, NORMAL BREATHING PATTERN - Cardiovascular Exam Cardiovascular Exam: REGULAR RHYTHM - GI/Abdominal Exam GI & Abdominal Exam: Soft, Normal Bowel Sounds - Extremities Exam Additional comments: L lower extremity dressing clean/dry/intact No strike through - Neurological Exam Neurological Exam: Alert, Awake, Oriented x3 - Psychiatric Exam Psychiatric exam: Normal Affect, Normal Mood Assessment and Plan - Assessment and Plan (Free Text) Assessment: 53 year old female patient, with PMHx of Scleroderma and Raynauds, admitted for left 4th digit infection after failing out patient therapy Plan: 1. Left 4th toe ulceration - Acute - Afebrile - L foot x-rays taken; no evidence of OM - Podiatry Consult; reccs appreciated - Vasc Consult; reccs appreciated - CT angio taken; results pending - IV abx, Vanco/Zosyn - C/w pain management 2. Scleroderma - Chronic - No home medication 3. Raynauds - Chronic - No home medication 4. Tobacco use - Chronic - Nicotine patch 14mg 5. DVT - Start Lovenox 40mg SC daily 6. Diet - Regular Diet 7. Code Status - Full code
[2018-12-28 07:44] LABS: HEMOGLOBIN 12.3 g/dL (12.0-16.0); MEAN CELL VOLUME 87.3 fl (81.0-99.0); MEAN CORPUSCULAR HEMOGLOBIN 28.6 pg (27.0-31.0); MEAN CORPUSCULAR HGB CONC 32.7 g/dL (33.0-37.0); RBC 4.32 Mil/uL (3.80-5.20); RED CELL DISTRIBUTION WIDTH 15.8 % (11.5-14.5); WHITE BLOOD COUNT 5.9 K/uL (4.8-10.8)
[2018-12-28 07:47] LABS: BLOOD UREA NITROGEN 15 mg/dl (7-17); CALCIUM 8.3 mg/dL (8.4-10.2); GFR NON-AFRICAN AMERICAN > 60
[2018-12-28 07:57] VITALS: RESP 20
[2018-12-28] MEDS: Enoxaparin 40 mg Syringe SC SCH (08:54)
[2018-12-28] MEDS: Pantoprazole 40 mg EC Tab PO SCH (08:58)
[2018-12-28] MEDS ORDERED: NIFEdipine 30 mg ER Tab PO SCH (09:00)
--- NOTE | 2018-12-28 11:49 | CP.PCM.PN ---
Subjective - Date & Time of Evaluation Date of Evaluation: 12/28/18 Time of Evaluation: 11:48 - Subjective Subjective: feeling fine denies any complaints CTA reviewed Objective - Vital Signs/Intake and Output Vital Signs (last 24 hours): Temp Pulse Resp BP Pulse Ox 97.5 F L 81 20 144/77 98 12/28/18 07:57 12/28/18 08:57 12/28/18 07:57 12/28/18 08:57 12/28/18 07:57 - Medications Medications: Current Medications Acetaminophen (Tylenol 325mg Tab) 650 mg PO Q4 PRN PRN Reason: Pain, moderate (4-7) Last Admin: 12/27/18 08:26 Dose: 650 mg Acetaminophen (Tylenol 325mg Tab) 325 mg PO Q4 PRN PRN Reason: Pain, Mild (1-3) Aspirin (Aspirin Chewable) 81 mg PO DAILY [facility] Last Admin: 12/28/18 08:59 Dose: 81 mg Enoxaparin Sodium (Lovenox) 40 mg SC DAILY [facility]; Protocol Last Admin: 12/28/18 08:54 Dose: 40 mg Vancomycin HCl 1 gm/ Sodium (Chloride) 250 mls @ 166.667 mls/hr IVPB Q12 [facility]; Protocol Last Admin: 12/28/18 08:58 Dose: 166.667 mls/hr Piperacillin Sod/Tazobactam (Sod 3.375 gm/ Sodium Chloride) 100 mls @ 100 mls/hr IVPB Q6H [facility]; Protocol Last Admin: 12/28/18 05:42 Dose: 100 mls/hr Ketorolac Tromethamine (Toradol) 30 mg IVP Q6 PRN PRN Reason: Pain, severe (8-10) Last Admin: 12/28/18 09:40 Dose: 30 mg Ketorolac Tromethamine (Toradol) 15 mg IVP Q6 PRN PRN Reason: Pain, moderate (4-7) Nicotine (Nicoderm Cq) 1 patch TD DAILY [facility] Last Admin: 12/28/18 09:02 Dose: Not Given Nifedipine (Procardia Xl) 30 mg PO DAILY [facility] Last Admin: 12/28/18 08:57 Dose: 30 mg Pantoprazole Sodium (Protonix Ec Tab) 40 mg PO DAILY [facility] Last Admin: 12/28/18 08:58 Dose: 40 mg - Labs Labs: 12/28/18 06:40 12/28/18 06:40 PT 11.0 Seconds (9.8-13.1) 12/26/18 16:35 INR 1.0 12/26/18 16:35 APTT 29.8 Seconds (25.6-37.1) 12/26/18 16:35 - Constitutional Appears: Well - Head Exam Head Exam: ATRAUMATIC, NORMAL INSPECTION, NORMOCEPHALIC - Eye Exam Eye Exam: EOMI, Normal appearance, PERRL Pupil Exam: NORMAL ACCOMODATION, PERRL - ENT Exam ENT Exam: Mucous Membranes Moist, Normal Exam - Neck Exam Neck Exam: Full ROM, Normal Inspection. absent: Lymphadenopathy - Respiratory Exam Respiratory Exam: Clear to Ausculation Bilateral, NORMAL BREATHING PATTERN - Cardiovascular Exam Cardiovascular Exam: REGULAR RHYTHM, +S1, +S2. absent: Murmur - GI/Abdominal Exam GI & Abdominal Exam: Soft, Normal Bowel Sounds. absent: Tenderness - Extremities Exam Extremities Exam: Full ROM, Normal Capillary Refill, Normal Inspection. absent: Joint Swelling, Pedal Edema - Back Exam Back Exam: NORMAL INSPECTION - Neurological Exam Neurological Exam: Alert, Awake, CN II-XII Intact, Normal Gait, Oriented x3 - Psychiatric Exam Psychiatric exam: Normal Affect, Normal Mood - Skin Skin Exam: Dry, Intact, Normal Color, Warm Assessment and Plan (1) PVD (peripheral vascular disease) Assessment & Plan: 2' to raynauds no evidence of atherosclerotic PVD on CtA CCB, ASA stable to dc home Status: Acute (2) Raynaud disease Status: Acute (3) Cellulitis of fourth toe of left foot Status: Acute
--- NOTE | 2018-12-28 12:38 | CP.PCM.DIS ---
<Pepper Atkins - Last Filed: 12/28/18 12:51> Provider - Provider Date of Admission: 12/26/18 16:24 Attending physician: Roma Meredith DO Consults: 12/26/18 16:28 Podiatry Consult Stat Comment: Consulting Provider: Buck Simpson Consulting Physician: Buck Simpson Reason for Consult: Persistent 4th LEFT toe infection 12/26/18 17:44 Vascular Surgery Stat Comment: Consulting Provider: Nino Willard Physician Instructions: Reason For Exam: left foot ulcer with history of Raynauds 12/27/18 07:38 Infectious Disease Consult Routine Comment: Consulting Provider: Ramin Villalta Consulting Physician: Ramin Villalta Reason for Consult: infected l 4th digit with Raynauds Time Spent in preparation of Discharge (in minutes): 30 Hospital Course - Lab Results Lab Results: Micro Results 12/26/18 16:55 Blood-Venous Blood Culture - Preliminary NO GROWTH AFTER 24 HOURS 12/26/18 16:35 Blood-Venous Blood Culture - Preliminary NO GROWTH AFTER 24 HOURS Most Recent Lab Values WBC 5.9 K/uL (4.8-10.8) 12/28/18 06:40 RBC 4.32 Mil/uL (3.80-5.20) 12/28/18 06:40 Hgb 12.3 g/dL (12.0-16.0) 12/28/18 06:40 Hct 37.8 % (34.0-47.0) 12/28/18 06:40 MCV 87.3 fl (81.0-99.0) 12/28/18 06:40 MCH 28.6 pg (27.0-31.0) 12/28/18 06:40 MCHC 32.7 g/dL (33.0-37.0) L 12/28/18 06:40 RDW 15.8 % (11.5-14.5) H 12/28/18 06:40 Plt Count 195 K/uL (130-400) 12/28/18 06:40 MPV 9.3 fl (7.2-11.7) 12/26/18 16:35 Neut % (Auto) 63.2 % (50.0-75.0) 12/26/18 16:35 Lymph % (Auto) 27.0 % (20.0-40.0) 12/26/18 16:35 [place] % (Auto) 6.7 % (0.0-10.0) 12/26/18 16:35 Eos % (Auto) 2.4 % (0.0-4.0) 12/26/18 16:35 Baso % (Auto) 0.7 % (0.0-2.0) 12/26/18 16:35 Neut # (Auto) 3.8 K/uL (1.8-7.0) 12/26/18 16:35 Lymph # (Auto) 1.6 K/uL (1.0-4.3) 12/26/18 16:35 [place] # (Auto) 0.4 K/uL (0.0-0.8) 12/26/18 16:35 Eos # (Auto) 0.1 K/uL (0.0-0.7) 12/26/18 16:35 Baso # (Auto) 0.0 K/uL (0.0-0.2) 12/26/18 16:35 ESR 14 mm/hr (0-30) 12/27/18 14:18 PT 11.0 Seconds (9.8-13.1) 12/26/18 16:35 INR 1.0 12/26/18 16:35 APTT 29.8 Seconds (25.6-37.1) 12/26/18 16:35 Sodium 137 mmol/l (132-148) 12/28/18 06:40 Potassium 4.1 MMOL/L (3.6-5.0) 12/28/18 06:40 Chloride 103 mmol/L (98-107) 12/28/18 06:40 Carbon Dioxide 23 mmol/L (22-30) 12/28/18 06:40 Anion Gap 15 (10-20) 12/28/18 06:40 BUN 15 mg/dl (7-17) 12/28/18 06:40 Creatinine 0.7 mg/dl (0.7-1.2) 12/28/18 06:40 Est GFR ( Amer) > 60 12/28/18 06:40 Est GFR (Non-Af Amer) > 60 12/28/18 06:40 Random Glucose 92 mg/dL (65-105) 12/28/18 06:40 Lactic Acid 0.9 mmol/L (0.7-2.1) 12/26/18 16:51 Calcium 8.3 mg/dL (8.4-10.2) L 12/28/18 06:40 Total Bilirubin 0.3 mg/dl (0.2-1.3) 12/26/18 16:35 AST 33 U/L (14-36) 12/26/18 16:35 ALT 25 U/L (9-52) 12/26/18 16:35 Alkaline Phosphatase 101 U/L (38-126) 12/26/18 16:35 C-Reactive Protein 10.60 mg/L (0.0-9.9) H 12/27/18 14:18 Total Protein 7.6 G/DL (6.3-8.2) 12/26/18 16:35 Albumin 4.3 g/dL (3.5-5.0) 12/26/18 16:35 Globulin 3.3 gm/dL (2.2-3.9) 12/26/18 16:35 Albumin/Globulin Ratio 1.3 (1.0-2.1) 12/26/18 16:35 - Hospital Course Hospital Course: 53 year old female patient, with PMHx of Scleroderma and Raynauds, admitted for left 4th digit infection after failing out patient therapy. During her hospital course, left foot x-rays taken which revealed no osteomyelitis. She was started on IV Vanco/Zosyn. Dr. Willard and Dr. Simpson were consulted for recommendations. CTA was performed and read by Dr. Willard, which showed no evidence of atherosclerotic PVD. On day of discharge, PICC line was placed and patient stable for discharge home with IV antibiotics, Vanco and Cefepime. Aspirin 81mg, Lipitor 10mg PO, and Nifedipine 30mg were prescribed to the patient upon discharge for management of Raynauds. Patient to follow up as an outpatient in the Family Medicine and Podiatry clinic within 1 week of discharge for continued treatment. 1. Left 4th toe ulceration - Acute - L foot x-rays taken; no evidence of OM - Podiatry Consult; reccs appreciated - Vasc Consult; reccs appreciated - CT angio - IV abx, Vanco/Zosyn - C/w pain management 2. Scleroderma - Chronic 3. Raynauds - Chronic - Date & Time of H&P Date of H&P: 12/28/18 Time of H&P: 12:38 Discharge Exam - Head Exam Head Exam: ATRAUMATIC, NORMAL INSPECTION, NORMOCEPHALIC - Eye Exam Pupil Exam: NORMAL ACCOMODATION - Respiratory Exam Respiratory Exam: NORMAL BREATHING PATTERN, UNREMARKABLE - Cardiovascular Exam Cardiovascular Exam: REGULAR RHYTHM - GI/Abdominal Exam GI & Abdominal Exam: Normal Bowel Sounds, Unremarkable - Extremities Exam Additional comments: Left lower extremity dressing clean/dry/intact No strike through CFT > 3 seconds - Neurological Exam Neurological exam: Alert, Oriented x3 - Psychiatric Exam Psychiatric exam: Normal Affect, Normal Mood Discharge Plan - Discharge Medications Prescriptions: Aspirin [Aspirin Chewable] 81 mg PO DAILY #100 chew Atorvastatin [Lipitor] 10 mg PO DAILY #90 tab Cefepime 1gm in NS 100ml [Maxipime 1gm] 1 gm IVPB Q12 7 Days #14 bag NIFEdipine ER [Procardia XL] 30 mg PO DAILY #90 ter Tramadol HCl [Ultram] 25 mg PO QAM #5 tablet Vancomycin/0.9 % Sod Chloride [Vanco 1 Gram/250 ml-0.9% NaCl] 1 gm IV Q12 7 Days #14 plast..bag - Follow Up Plan Condition: FAIR Disposition: HOME/ ROUTINE Instructions: Peripherally-Inserted Central Catheter (DC), Cellulitis (DC), Abscess (GEN) Additional Instructions: follow up with primary MD 1 week [facility] infusion [phone] d/c PICC line after pt completes antibiotic tx Referrals: [facility] [Outside] Buck Simpson MD [Staff Provider] - Nino Willard MD [Staff Provider] - Mauro Silver MD [Family Provider] - <Deysi Jacobs - Last Filed: 12/28/18 17:22> Provider - Provider Date of Admission: 12/26/18 16:24 Attending physician: Roma Meredith DO Consults: 12/26/18 16:28 Podiatry Consult Stat Comment: Consulting Provider: Buck Simpson Consulting Physician: Buck Simpson Reason for Consult: Persistent 4th LEFT toe infection 12/26/18 17:44 Vascular Surgery Stat Comment: Consulting Provider: Nino Willard Physician Instructions: Reason For Exam: left foot ulcer with history of [place] Hospital Course - Lab Results Lab Results: Micro Results 12/26/18 16:55 Blood-Venous Blood Culture - Preliminary NO GROWTH AFTER 48 HOURS 12/26/18 16:35 Blood-Venous Blood Culture - Preliminary NO GROWTH AFTER 48 HOURS Most Recent Lab Values WBC 5.9 K/uL (4.8-10.8) 12/28/18 06:40 RBC 4.32 Mil/uL (3.80-5.20) 12/28/18 06:40 Hgb 12.3 g/dL (12.0-16.0) 12/28/18 06:40 Hct 37.8 % (34.0-47.0) 12/28/18 06:40 MCV 87.3 fl (81.0-99.0) 12/28/18 06:40 MCH 28.6 pg (27.0-31.0) 12/28/18 06:40 MCHC 32.7 g/dL (33.0-37.0) L 12/28/18 06:40 RDW 15.8 % (11.5-14.5) H 12/28/18 06:40 Plt Count 195 K/uL (130-400) 12/28/18 06:40 MPV 9.3 fl (7.2-11.7) 12/26/18 16:35 Neut % (Auto) 63.2 % (50.0-75.0) 12/26/18 16:35 Lymph % (Auto) 27.0 % (20.0-40.0) 12/26/18 16:35 [place] % (Auto) 6.7 % (0.0-10.0) 12/26/18 16:35 Eos % (Auto) 2.4 % (0.0-4.0) 12/26/18 16:35 Baso % (Auto) 0.7 % (0.0-2.0) 12/26/18 16:35 Neut # (Auto) 3.8 K/uL (1.8-7.0) 12/26/18 16:35 Lymph # (Auto) 1.6 K/uL (1.0-4.3) 12/26/18 16:35 [place] # (Auto) 0.4 K/uL (0.0-0.8) 12/26/18 16:35 Eos # (Auto) 0.1 K/uL (0.0-0.7) 12/26/18 16:35 Baso # (Auto) 0.0 K/uL (0.0-0.2) 12/26/18 16:35 ESR 14 mm/hr (0-30) 12/27/18 14:18 PT 11.0 Seconds (9.8-13.1) 12/26/18 16:35 INR 1.0 12/26/18 16:35 APTT 29.8 Seconds (25.6-37.1) 12/26/18 16:35 Sodium 137 mmol/l (132-148) 12/28/18 06:40 Potassium 4.1 MMOL/L (3.6-5.0) 12/28/18 06:40 Chloride 103 mmol/L (98-107) 12/28/18 06:40 Carbon Dioxide 23 mmol/L (22-30) 12/28/18 06:40 Anion Gap 15 (10-20) 12/28/18 06:40 BUN 15 mg/dl (7-17) 12/28/18 06:40 Creatinine 0.7 mg/dl (0.7-1.2) 12/28/18 06:40 Est GFR ( Amer) > 60 12/28/18 06:40 Est GFR (Non-Af Amer) > 60 12/28/18 06:40 Random Glucose 92 mg/dL (65-105) 12/28/18 06:40 Lactic Acid 0.9 mmol/L (0.7-2.1) 12/26/18 16:51 Calcium 8.3 mg/dL (8.4-10.2) L 12/28/18 06:40 Total Bilirubin 0.3 mg/dl (0.2-1.3) 12/26/18 16:35 AST 33 U/L (14-36) 12/26/18 16:35 ALT 25 U/L (9-52) 12/26/18 16:35 Alkaline Phosphatase 101 U/L (38-126) 12/26/18 16:35 C-Reactive Protein 10.60 mg/L (0.0-9.9) H 12/27/18 14:18 Total Protein 7.6 G/DL (6.3-8.2) 12/26/18 16:35 Albumin 4.3 g/dL (3.5-5.0) 12/26/18 16:35 Globulin 3.3 gm/dL (2.2-3.9) 12/26/18 16:35 Albumin/Globulin Ratio 1.3 (1.0-2.1) 12/26/18 16:35 Attending/Attestation - Attestation I have personally seen and examined this patient.: Yes I have fully participated in the care of the patient.: Yes I have reviewed all pertinent clinical information, including history, physical exam and plan: Yes Notes (Text): Left Foot 4th Toe Ulcer Scleroderma/Raynauds -received IV Zosyn and Vanco - will d/c home on 1 more week of IV Cefepime and Vanco ( BMP and Vanco trough on Monday) - pt has no fever, no leukocytosis - Vascular specialist consulted- Dr Willard- cindy Abdominal Angiogram - w/c did not show any atherosclerotic PVD- Dr Willard rec ASA, statin and Calcium channel ila - Pt to ff up with Podiatry as outpt -ff up [facility] Clinic in 1 wk
--- NOTE | 2018-12-28 13:31 | CP.PCM.PN ---
Subjective - Date & Time of Evaluation Date of Evaluation: 12/28/18 Time of Evaluation: 13:30 - Subjective Subjective: I D NOTE WAS NOT INFORMED OF CONSULT. THUS UNABLE TO SEE PATIENT Objective - Vital Signs/Intake and Output Vital Signs (last 24 hours): Temp Pulse Resp BP Pulse Ox 97.5 F L 81 20 144/77 98 12/28/18 07:57 12/28/18 08:57 12/28/18 07:57 12/28/18 08:57 12/28/18 07:57 - Medications Medications: Current Medications Acetaminophen (Tylenol 325mg Tab) 650 mg PO Q4 PRN PRN Reason: Pain, moderate (4-7) Last Admin: 12/27/18 08:26 Dose: 650 mg Acetaminophen (Tylenol 325mg Tab) 325 mg PO Q4 PRN PRN Reason: Pain, Mild (1-3) Aspirin (Aspirin Chewable) 81 mg PO DAILY [facility] Last Admin: 12/28/18 08:59 Dose: 81 mg Atorvastatin Calcium (Lipitor) 10 mg PO DAILY [facility] Last Admin: 12/28/18 12:08 Dose: 10 mg Enoxaparin Sodium (Lovenox) 40 mg SC DAILY [facility]; Protocol Last Admin: 12/28/18 08:54 Dose: 40 mg Vancomycin HCl 1 gm/ Sodium (Chloride) 250 mls @ 166.667 mls/hr IVPB Q12 [facility]; Protocol Last Admin: 12/28/18 08:58 Dose: 166.667 mls/hr Piperacillin Sod/Tazobactam (Sod 3.375 gm/ Sodium Chloride) 100 mls @ 100 mls/hr IVPB Q6H [facility]; Protocol Last Admin: 12/28/18 12:04 Dose: 100 mls/hr Ketorolac Tromethamine (Toradol) 30 mg IVP Q6 PRN PRN Reason: Pain, severe (8-10) Last Admin: 12/28/18 09:40 Dose: 30 mg Ketorolac Tromethamine (Toradol) 15 mg IVP Q6 PRN PRN Reason: Pain, moderate (4-7) Nicotine (Nicoderm Cq) 1 patch TD DAILY [facility] Last Admin: 12/28/18 09:02 Dose: Not Given Nifedipine (Procardia Xl) 30 mg PO DAILY [facility] Last Admin: 12/28/18 08:57 Dose: 30 mg Pantoprazole Sodium (Protonix Ec Tab) 40 mg PO DAILY [facility] Last Admin: 12/28/18 08:58 Dose: 40 mg - Labs Labs: 12/28/18 06:40 12/28/18 06:40 PT 11.0 Seconds (9.8-13.1) 12/26/18 16:35 INR 1.0 12/26/18 16:35 APTT 29.8 Seconds (25.6-37.1) 12/26/18 16:35
--- NOTE | 2018-12-28 13:33 | RAD ---
Date of service: 12/28/2018 HISTORY: picc verification COMPARISON: 12/26/2018 FINDINGS: LUNGS: No active pulmonary disease. PLEURA: No significant pleural effusion identified, no pneumothorax apparent. CARDIOVASCULAR: No aortic atherosclerotic calcification present. Normal cardiac size. No pulmonary vascular congestion. OSSEOUS STRUCTURES: No significant abnormalities. VISUALIZED UPPER ABDOMEN: Normal. OTHER FINDINGS: None. IMPRESSION: No active disease.
[2018-12-28] MEDS ORDERED: Cefepime 1 GM in Sodium Chloride 0.9% 100 ML IVPB SCH (14:00)
[2018-12-28 16:12] VITALS: BP 125/76; PULSE 66; TEMP 97.3; O2SAT 97
--- NOTE | 2018-12-28 16:21 | CP.PCM.PN ---
Subjective - Date & Time of Evaluation Date of Evaluation: 12/28/18 Time of Evaluation: 16:19 - Subjective Subjective: Podiatry progress note for Dr. Simpson, 53 year old female patient seen and evaluated at bedside. Patient states the pain has significantly improved. Patient denies any other pedal complaints. Patient was seen resting comfortably in bed. She denies N/V/F/SOB/CP. Patient aware she is being discharged today on PICC Objective - Vital Signs/Intake and Output Vital Signs (last 24 hours): Temp Pulse Resp BP Pulse Ox 97.3 F L 66 20 125/76 97 12/28/18 16:11 12/28/18 16:11 12/28/18 16:11 12/28/18 16:11 12/28/18 16:11 - Medications Medications: Current Medications Acetaminophen (Tylenol 325mg Tab) 650 mg PO Q4 PRN PRN Reason: Pain, moderate (4-7) Last Admin: 12/27/18 08:26 Dose: 650 mg Acetaminophen (Tylenol 325mg Tab) 325 mg PO Q4 PRN PRN Reason: Pain, Mild (1-3) Aspirin (Aspirin Chewable) 81 mg PO DAILY [facility] Last Admin: 12/28/18 08:59 Dose: 81 mg Atorvastatin Calcium (Lipitor) 10 mg PO DAILY [facility] Last Admin: 12/28/18 12:08 Dose: 10 mg Enoxaparin Sodium (Lovenox) 40 mg SC DAILY [facility]; Protocol Last Admin: 12/28/18 08:54 Dose: 40 mg Vancomycin HCl 1 gm/ Sodium (Chloride) 250 mls @ 166.667 mls/hr IVPB Q12 [facility]; Protocol Last Admin: 12/28/18 08:58 Dose: 166.667 mls/hr Piperacillin Sod/Tazobactam (Sod 3.375 gm/ Sodium Chloride) 100 mls @ 100 mls/hr IVPB Q6H [facility]; Protocol Last Admin: 12/28/18 12:04 Dose: 100 mls/hr Cefepime HCl 1 gm/ Sodium (Chloride) 100 mls @ 100 mls/hr IVPB DAILY [facility]; Protocol Last Admin: 12/28/18 15:04 Dose: 100 mls/hr Ketorolac Tromethamine (Toradol) 30 mg IVP Q6 PRN PRN Reason: Pain, severe (8-10) Last Admin: 12/28/18 16:16 Dose: 30 mg Ketorolac Tromethamine (Toradol) 15 mg IVP Q6 PRN PRN Reason: Pain, moderate (4-7) Nicotine (Nicoderm Cq) 1 patch TD DAILY [facility] Last Admin: 12/28/18 09:02 Dose: Not Given Nifedipine (Procardia Xl) 30 mg PO DAILY [facility] Last Admin: 12/28/18 08:57 Dose: 30 mg Pantoprazole Sodium (Protonix Ec Tab) 40 mg PO DAILY [facility] Last Admin: 12/28/18 08:58 Dose: 40 mg - Labs Labs: 12/28/18 06:40 12/28/18 06:40 PT 11.0 Seconds (9.8-13.1) 12/26/18 16:35 INR 1.0 12/26/18 16:35 APTT 29.8 Seconds (25.6-37.1) 12/26/18 16:35 - Constitutional Appears: Well, Non-toxic, No Acute Distress - Head Exam Head Exam: ATRAUMATIC, NORMOCEPHALIC - Extremities Exam Additional comments: LLE focused Vasc: Non-palpable DP and PT noted bilaterally. [employer] <4 seconds noted to left foot digits. Skin warm to touch bilaterally Derm: Open wound noted to distal aspect of left 4th digit measuring 1cm x 1cm x 0.2cm with fibrotic tissue. no drainage at this time. No purulent discharge noted. No probe to bone. Mild malodor noted. Erythema with area > 3 cm noted around the wound consistent with cellulitis. Ortho: pain and tenderness on palpation of the left fourth digit, no other gross pathology noted Neuro: gross and protective sensation intact. - Neurological Exam Neurological Exam: Alert, Awake, Oriented x3 - Psychiatric Exam Psychiatric exam: Normal Affect, Normal Mood Assessment and Plan - Assessment and Plan (Free Text) Assessment: 53 y/o female patient seen and evaluated in Podiatry clinic, sent to ED for adm ission for vascular workup and IV Abx Plan: Patient was seen, evaluated Plan was discussed with Dr. Simpson Chart, labs and vitals were reviewed Left foot X-ray: tissue swelling compatible with trauma or cellulitis, no gas forming cellulitis, no osseous changes appreciated to suggest osteomyelitis Wound Culture obtained Wound dressed with adaptic betadine, DSD Ordered Vascular consult-reviewed CT, no plan at this time CT Angiogram was performed Vascular recommendations appreciated ID consult cancelled Podiatry will continue to follow patient while in house Patient stable for discharge on IV abx with a PICC< patient to follow up monday in clinic
--- NOTE | 2018-12-28 18:56 | CT ---
Date of service: 12/27/2018 PROCEDURE: CT Angiography Abdomen, Pelvis and Lower Extremity with Contrast HISTORY: LE ulcer / PVD COMPARISON: None available. TECHNIQUE: Technique: CT angiography of the abdomen, pelvis and bilateral lower extremities performed in the arterial phase of enhancement. Coronal and sagittal reformats, and well as rotating MIP images of the vessels generated at the workstation. Intravenous contrast dose: Radiation dose: Total exam DLP = 1502.14 mGy-cm. This CT exam was performed using one or more of the following dose reduction techniques: Automated exposure control, adjustment of the mA and/or kV according to patient size, and/or use of iterative reconstruction technique. FINDINGS: CT ANGIOGRAPHY: ABDOMINAL AORTA:: The abdominal aorta is widely patent without stenosis or aneurysm development. Limited atherosclerosis appreciated distally within the wall. No evidence of to suggest aortic dissection throughout the abdomen. MAJOR AORTIC BRANCHES: Celiac [place]: Unremarkable. Superior mesenteric artery: Proximal atherosclerosis without significant stenosis. Inferior mesenteric artery: Unremarkable. Renal arteries: Proximal atherosclerosis without significant stenosis. PELVIC ARTERIES: Right Common Iliac: Widely patent despite proximal atherosclerosis. Right External Iliac: Unremarkable. Right Internal Iliac: Unremarkable. Left Common Iliac: Widely patent despite proximal atherosclerosis nearly identical to the right common iliac artery. Left External Iliac: Unremarkable. Left Internal Iliac: Unremarkable. RIGHT LOWER EXTREMITY ARTERIES: Right Common Femoral: Unremarkable. Right Superficial Femoral: Unremarkable. Right Profunda Femoris: Unremarkable. Right Popliteal:Unremarkable. Right Anterior Tibial: Insert tibial artery is patent to the ankle though it tapers to a markedly stenotic caliber at the ankle. Right Tibioperoneal Trunk: Unremarkable. Right Posterior Tibial: Widely patent to the ankle. Right Peroneal: Patent to the ankle. Right dorsalis pedis : Patent though lower limits of normal caliber. LEFT LOWER EXTREMITY ARTERIES: Left Common Femoral: Unremarkable. Left Superficial Femoral: Unremarkable. Left Profunda Femoris: Unremarkable. Left Popliteal: Unremarkable. Left Anterior Tibial: Patent to the ankle though significantly stenotic distally. Left Tibioperoneal Trunk: Unremarkable. Left Posterior Tibial: Patent to the ankle without significant stenosis. Left Peroneal:Patent to the ankle Left Dorsalis pedis: Patent but lower limits normal size as seen at the right as well. NON-ANGIOGRAPHIC ASPECT OF THE EXAM: LOWER THORAX: The distal esophagus is distended with retained food moderately. LIVER: Unremarkable. No gross lesion or ductal dilatation. GALLBLADDER AND BILE DUCTS: Cholelithiasis within an otherwise unremarkable gallbladder. PANCREAS: Unremarkable. No gross lesion or ductal dilatation. SPLEEN: Unremarkable. ADRENALS: Unremarkable. No mass. KIDNEYS AND URETERS: Unremarkable. No hydronephrosis. No solid mass. STOMACH AND BOWEL: Stomach is distended with retained food moderately. No bowel obstruction evident. No gross mural thickening. Nonacute sigmoid diverticular changes. APPENDIX: Normal appendix. PERITONEUM: Unremarkable. No free fluid. No free air. LYMPH NODES: Unremarkable. No enlarged lymph nodes. BLADDER: Unremarkable. REPRODUCTIVE: Unremarkable. BONES: No acute fracture. OTHER FINDINGS: None. IMPRESSION: 1. Widely patent aortic iliac and femoral arterial system bilaterally. 2. Three-vessel runoff to the ankles bilaterally though distal anterior tibial arteries appear lower limits normal caliber bilaterally as well as or cells pedis arteries. 3. Cholelithiasis with gallbladder otherwise unremarkable. 4. Nonacute sigmoid diverticulosis. 5. Visualized distal esophagus distended with retained food.
--- NOTE | 2018-12-31 07:14 | PQF ---
PROVIDER RESPONSE TEXT: Pressure ulcer non-healing due to Raynauds REVIEWER QUERY TEXT: Skin Ulcer Type and Severity Skin ulcer is documented in the Medical Record. AFTER WORK-UP Please specify the1) type and 2) sev erity Such as: 1) Type: -- Pressure ulcer -- Diabetic skin ulcer -- Venous stasis ulcer -- Other, please specify AND 2) Severity: -- Limited to breakdown of skin -- With fat layer exposure -- With necrosis of muscle -- With necrosis of bone -- Other, please specify The patient's Clinical Indicators include: PODIATRY: Open wound noted to distal aspect of left 4th digit measuring 1cm x 1cm x 0.2cm with fibro tic tissue. minimal drainage noted at this time. No purulent discharge noted. No probe to bone. Mild malodor noted. Erythema with area > 3 cm noted around the wound consistent with cellulitis XRAY L foot digit: Tissue swelling compatible with the history of trauma and/or cellulitis. No gas-fo rming cellulitis seen. Findings affect primarily the 4th digit. Rx: Dressing changes,IVAB, CT Angio lower extremity Query created by: Harmony Bentley on 12/28/2018 11:48 AM Electronically signed by: Jimena Osei 12/31/2018 7:11 AM
== END 2018-12-28 17:26 | disposition home or self-care (01) | DRG 563 ==
LOC: H.ER 15:25 → H.ERHOLD 16:24 → H.MEDSURG1 17:37
PROVIDERS: ADMIT Student in an Organized Health Care Education/Training Program; ATTEND Student in an Organized Health Care Education/Training Program
PROC: 02HV33Z Insertion of Infusion Device into Superior Vena Cava, Percutaneous Approach (ICD-10-PCS; principal; 2018-12-28)
PROC: B548ZZA Ultrasonography of Superior Vena Cava, Guidance (ICD-10-PCS; 2018-12-28)
DX: L03.032 Cellulitis of left toe (principal); L89.899 Pressure ulcer of other site, unspecified stage; M34.9 Systemic sclerosis, unspecified; I73.00 Raynaud's syndrome without gangrene; F17.210 Nicotine dependence, cigarettes, uncomplicated; E11.9 Type 2 diabetes mellitus without complications